=== PATIENT | female | born 1970 | race Caucasian/White ===

== ENCOUNTER → 2017-04-04 11:44 | Outpatient (CLI) | payer OTHER, SELFPAY ==
[2017-04-04 14:06] LABS: Color, Urine Yellow (Yellow); Glucose, Dipstick Normal (Normal); Ketone-Dipstick 5 mg/dl (Negative); Leukocyte Esterase-Dipstick Negative /ul (Negative); Nitrite-Dipstick Negative (Negative); Occult Blood-Urine Negative /ul (Negative); Protein-Dipstick Negative (Negative); Urine Bilirubin Dipstick Negative (Negative); Urine Clarity Sl. Cloudy (Clear); Urine Urobilinogen Normal (Normal)
[2017-04-04 14:13] LABS: Absolute Lymphocyte Count 1.59 X10^3/ul (0.83-4.51); Absolute Neutrophil Count 2.5 X10^3/uL (2.0-7.7); Basophil# 0.03 X10^3/uL; Basophil% 0.6 % (0-1); Eosinophil# 0.07 X10^3/uL; Eosinophils% 1.5 % (0-5); Hematocrit 38.4 % (37-47); Hemoglobin 12.6 g/dl (12.0-15.0); Lymphocyte # 1.59 X10^3/ul (4.0); Lymphocyte % 34.3 % (19-41); Mean Corp Hgb Conc 32.8 g/gl (32-36); Mean Corpuscular Hgb 29.7 pg (27.0-32.0); Mean Corpuscular Volume 90.6 fL (81-99); Mean Platelet Vol. 10.3 fl (6.2-12.0); Monocyte# 0.47 X10^3/uL; Monocyte% 10.1 % (0-10); Neutrophil # 2.48 X10^3/uL (2.7-7.7); Neutrophil % 53.5 % (47-70); Platelet Count 200 K/mm3 (150-450); Protein, Urine (Random) 19.8 mg/dL (<11.9); Protein:Creat Ratio 139 mg/g CRE (0-200); RBC Distribution Width CV 13.1 % (11.6-14.6); RBC Distribution Width SD 42.9 fl (35.1-43.9); Red Blood Count 4.24 M/mm3 (4.2-5.4); White Blood Count 4.6 K/mm3 (4.4-11.0)
[2017-04-04 14:18] LABS: POSITIVE COUNT NO; POSITIVE DIFFERENTIAL NO; POSITIVE MORPHOLOGY NO
[2017-04-04 14:37] LABS: ALB/GLOB Ratio 1.3 RATIO (0.9-2.4); AST(SGOT) 18 U/L (15-37); Alanine Aminotransfer ALT/SGPT 27 U/L (13-56); Albumin, Serum 4.1 g/dL (3.2-5.0); Alkaline Phosphatase 55 U/L (45-117); Anion Gap 8 (5-15); BUN 14 mg/dL (7-18); BUN/Creat Ratio 21.4 RATIO (10-20); Calcium,Total 8.9 mg/dL (8.5-10.1); Chloride 106 mmol/L (98-107); Creatinine, Serum 0.66 mg/dL (0.55-1.02); EST Glomerular Filtration Rate 103 mL/min (>60); Est Glom Filt Rate - Afr Amer 125 mL/min (>60); Globulin 3.1 g/dL (2.2-4.2); Glucose 82 mg/dL (74-106); Potassium 3.8 mmol/L (3.5-5.1); Protein, Total 7.2 g/dL (6.4-8.2); Sodium Level 140 mmol/L (136-145)
[2017-04-06 11:12] LABS: Anti-dsDNA Ab 6 IU/mL (0-9)
[2017-04-06 11:21] LABS: Complement C3 114 mg/dL (82-167)
== END ==
PROVIDERS: Visit Provider Internal Medicine Rheumatology
DX: M35.8 Other specified systemic involvement of connective tissue (principal); Z79.899 Other long term (current) drug therapy; M65.311 Trigger thumb, right thumb; F32.9 Major depressive disorder, single episode, unspecified; F41.9 Anxiety disorder, unspecified
CPT/HCPCS: 36415; 80053; 81002; 82570; 84156; 85025; 86160; 86225

== ENCOUNTER → 2017-06-21 11:34 | Outpatient (CLI) | payer OTHER, SELFPAY ==
[2017-06-21 14:28] LABS: Absolute Lymphocyte Count 1.94 X10^3/ul (0.83-4.51); Absolute Neutrophil Count 2.6 X10^3/uL (2.0-7.7); Basophil# 0.04 X10^3/uL; Basophil% 0.8 % (0-1); Eosinophil# 0.11 X10^3/uL; Eosinophils% 2.2 % (0-5); Hematocrit 35.9 % (37-47); Hemoglobin 12.2 g/dl (12.0-15.0); Lymphocyte # 1.94 X10^3/ul (4.0); Mean Corpuscular Hgb 30.3 pg (27.0-32.0); Mean Corpuscular Volume 89.3 fL (81-99); Mean Platelet Vol. 10.3 fl (6.2-12.0); Monocyte# 0.39 X10^3/uL; Monocyte% 7.6 % (0-10); Neutrophil # 2.62 X10^3/uL (2.7-7.7); Neutrophil % 51.2 % (47-70); Platelet Count 225 K/mm3 (150-450); RBC Distribution Width SD 41.9 fl (35.1-43.9); Red Blood Count 4.02 M/mm3 (4.2-5.4); White Blood Count 5.1 K/mm3 (4.4-11.0)
[2017-06-21 14:38] LABS: POSITIVE COUNT NO; POSITIVE DIFFERENTIAL NO; POSITIVE MORPHOLOGY NO
[2017-06-21 14:47] LABS: ALB/GLOB Ratio 1.4 RATIO (0.9-2.4); AST(SGOT) 29 U/L (15-37); Alanine Aminotransfer ALT/SGPT 35 U/L (13-56); Albumin, Serum 4.1 g/dL (3.2-5.0); Alkaline Phosphatase 51 U/L (45-117); Anion Gap 7 (5-15); BUN 14 mg/dL (7-18); BUN/Creat Ratio 19.3 RATIO (10-20); Calcium,Total 8.8 mg/dL (8.5-10.1); Chloride 108 mmol/L (98-107); Creatinine, Serum 0.72 mg/dL (0.55-1.02); EST Glomerular Filtration Rate 92 mL/min (>60); Est Glom Filt Rate - Afr Amer 111 mL/min (>60); Globulin 2.9 g/dL (2.2-4.2); Glucose 76 mg/dL (74-106); Sodium Level 141 mmol/L (136-145)
== END ==
PROVIDERS: Visit Provider Internal Medicine Rheumatology
DX: M06.4 Inflammatory polyarthropathy (principal); M35.8 Other specified systemic involvement of connective tissue; Z79.899 Other long term (current) drug therapy; M65.311 Trigger thumb, right thumb; F32.9 Major depressive disorder, single episode, unspecified; F41.9 Anxiety disorder, unspecified
CPT/HCPCS: 36415; 80053; 85025

== ENCOUNTER 2017-11-06 20:46 | Emergency (ER) | payer OTHER, SELFPAY ==
[2017-11-06 20:48] VITALS: BP 117/68; PULSE 91; RESP 18; TEMP 37.3; O2SAT 98; BMI 28.8
[2017-11-06 21:50] LABS: Absolute Lymphocyte Count 1.55 X10^3/ul (0.83-4.51); Absolute Neutrophil Count 2.9 X10^3/uL (2.0-7.7); Basophil# 0.04 X10^3/uL; Basophil% 0.8 % (0-1); Hematocrit 32.4 % (37-47); Hemoglobin 10.3 g/dl (12.0-15.0); Lymphocyte # 1.55 X10^3/ul (4.0); Lymphocyte % 31.6 % (19-41); Mean Corp Hgb Conc 31.8 g/gl (32-36); Mean Corpuscular Hgb 25.8 pg (27.0-32.0); Mean Corpuscular Volume 81.2 fL (81-99); Mean Platelet Vol. 9.1 fl (6.2-12.0); Monocyte# 0.29 X10^3/uL; Monocyte% 5.9 % (0-10); Neutrophil # 2.92 X10^3/uL (2.7-7.7); Neutrophil % 59.7 % (47-70); Platelet Count 251 K/mm3 (150-450); RBC Distribution Width CV 14.2 % (11.6-14.6); RBC Distribution Width SD 42.1 fl (35.1-43.9); Red Blood Count 3.99 M/mm3 (4.2-5.4); White Blood Count 4.9 K/mm3 (4.4-11.0)
[2017-11-06 21:52] LABS: POSITIVE COUNT NO; POSITIVE DIFFERENTIAL NO; POSITIVE MORPHOLOGY NO
[2017-11-06 22:11] LABS: Anion Gap 9 (5-15); BUN 12 mg/dL (7-18); Calcium,Total 8.5 mg/dL (8.5-10.1); Chloride 106 mmol/L (98-107); Creatinine, Serum 0.57 mg/dL (0.55-1.02); EST Glomerular Filtration Rate 121 mL/min (>60); Est Glom Filt Rate - Afr Amer 146 mL/min (>60); Estimated Creatinine Clearance 105.36 ml/min; Glucose 92 mg/dL (74-106); Potassium 3.4 mmol/L (3.5-5.1); Sodium Level 138 mmol/L (136-145); Thyroid Stim Hormone (TSH) 1.76 uIU/mL (0.358-3.74)
[2017-11-06 22:17] LABS: Pregnancy, Serum, hCG Quali. NEGATIVE Negative (0-9 Nonpreg)
--- NOTE | 2017-11-06 22:40 | CT_ITS ---
STUDY: CTA CHEST REASON FOR EXAM: Female, 47 years old. Supraclavicular swelling. RADIATION DOSAGE (If Supplied By Facility): CTDIvol = ( 8.36 ) mGy, DLP = ( 409.78 ) mGycm TECHNIQUE: The examination was performed with the intravenous administration of 100 ml of Isovue 370 contrast material. Post-processing of the angiographic images was performed, with multiplanar reformation and 3D reconstruction. Individualized dose optimization techniques were used for this CT. COMPARISON: None. FINDINGS: Normal enhancement of the main pulmonary artery and right and left pulmonary arteries. Normal enhancement of the bilateral peripheral pulmonary arteries. There is no demonstrated pulmonary embolism. Normal thoracic aorta and visualized great vessels. There is no demonstrated aortic dissection. Normal heart and pericardium. Normal mediastinum. Normal hilar regions. Normal visualized trachea and bronchi. There is minimal bibasilar atelectasis. There are bilateral breast implants in place. Normal osseous structures. Normal visualized upper abdomen. CT/CTA Chest W/WO Contrast IMPRESSION: No demonstrated pulmonary embolism or arterial dissection. Minimal bibasilar atelectasis. Electronically Signed: Penny Verde MD at 23:09 EDT Tel , Service support ,
--- NOTE | 2017-11-06 23:22 | ED.DCSUM_ITS ---
- ER Visit Summary Date of Service: 11/06/17 Chief Complaint: Swelling History of Present Illness: The patient is a 47 F with a history of meningioma, status post craniotomy and resection in August of this year. Also reports a history of mixed connective tissue disease. Presents today with swelling in her bilateral supraclavicular areas. This came on this evening and has been continuous. She never had this before. No pain or other associated symptoms. She was playing basketball earlier today. Denies any injuries. No steroid use currently. No history of thyroid disease. Physical Examination: Afebrile and vital signs unremarkable. Head and neck atraumatic. Neck is nontender with good range of motion. She has bilateral supraclavicular fullness without tenderness or masses. Heart regular. Lungs clear. Moves all extremities. Cranial nerves grossly intact. Overlying skin appears normal. Test Results: Hemoglobin 10.3 and potassium 3.4. test negative. TSH normal. CT of her chest showed no evidence of PE or dissection. She has mild bibasilar atelectasis. No masses. Emergency Department Course and Treatment: Patient's workup was unremarkable. I am not sure what is causing the swelling. This does not appear to be an emergent process. This may resolve over time. Patient was advised to follow- up with her family doctor for recheck. Return for any new or worsening issues. Treatment Plan: As above Disposition: Discharged Impression: 1. Bilateral supraclavicular edema 2. Anemia This note was generated with [employer] dictation software. It may contain incorrect words, spelling, and punctuation that were not noted in review of the chart prior to signing ED Disposition - Plan for ED Patient: Chief Complaint: Edema Referrals: Care Physician,No Primary [Primary Care Provider] -
--- NOTE | 2017-11-06 23:23 | ED.DEP ---
ED Disposition - Plan for ED Patient: Chief Complaint: Edema Instructions: Anemia Referrals: Kenji,Do, [NON-STAFF] -
[2017-11-06 23:37] VITALS: BP 122/78; PULSE 78; RESP 16
== END 2017-11-06 23:38 | disposition home or self-care (01) ==
LOC: ED 21:49
PROVIDERS: Emergency Provider Emergency Medicine
DX: R60.9 Edema, unspecified (principal); D64.9 Anemia, unspecified; M35.1 Other overlap syndromes; J98.11 Atelectasis; Z87.891 Personal history of nicotine dependence
CPT/HCPCS: 71275; 80048; 84443; 84703; 85025; 99283; Q9967; A4216

== ENCOUNTER → 2018-04-13 11:58 | Outpatient (CLI) | payer OTHER, SELFPAY ==
[2018-04-13 13:53] LABS: Absolute Lymphocyte Count 2.01 X10^3/ul (0.83-4.51); Absolute Neutrophil Count 3.2 X10^3/uL (2.0-7.7); Basophil# 0.04 X10^3/uL; Basophil% 0.7 % (0-1); Eosinophil# 0.07 X10^3/uL; Eosinophils% 1.2 % (0-5); Hematocrit 38.5 % (37-47); Hemoglobin 12.4 g/dl (12.0-15.0); Lymphocyte # 2.01 X10^3/ul (4.0); Lymphocyte % 34.9 % (19-41); Mean Corp Hgb Conc 32.2 g/gl (32-36); Mean Corpuscular Hgb 27.4 pg (27.0-32.0); Monocyte# 0.49 X10^3/uL; Monocyte% 8.5 % (0-10); Neutrophil # 3.15 X10^3/uL (2.7-7.7); Neutrophil % 54.7 % (47-70); Platelet Count 254 K/mm3 (150-450); RBC Distribution Width CV 15.5 % (11.6-14.6); RBC Distribution Width SD 47.9 fl (35.1-43.9); Red Blood Count 4.53 M/mm3 (4.2-5.4); White Blood Count 5.8 K/mm3 (4.4-11.0)
[2018-04-13 13:54] LABS: POSITIVE COUNT NO; POSITIVE DIFFERENTIAL NO; POSITIVE MORPHOLOGY NO
[2018-04-13 14:07] LABS: ALB/GLOB Ratio 1.2 RATIO (0.9-2.4); AST(SGOT) 16 U/L (15-37); Alanine Aminotransfer ALT/SGPT 23 U/L (13-56); Albumin, Serum 4.1 g/dL (3.2-5.0); Alkaline Phosphatase 68 U/L (45-117); Anion Gap 6 (5-15); BUN 15 mg/dL (7-18); BUN/Creat Ratio 23.6 RATIO (10-20); Calcium,Total 8.9 mg/dL (8.5-10.1); Chloride 109 mmol/L (98-107); Creatinine, Serum 0.64 mg/dL (0.55-1.02); EST Glomerular Filtration Rate 106 mL/min (>60); Est Glom Filt Rate - Afr Amer 129 mL/min (>60); Globulin 3.3 g/dL (2.2-4.2); Glucose 88 mg/dL (74-106); Potassium 3.8 mmol/L (3.5-5.1); Protein, Total 7.4 g/dL (6.4-8.2); Sodium Level 138 mmol/L (136-145)
== END ==
PROVIDERS: Family Provider Family Medicine; PCP Family Medicine; Referring Provider Internal Medicine Rheumatology; Visit Provider Internal Medicine Rheumatology
DX: M06.4 Inflammatory polyarthropathy (principal); M35.8 Other specified systemic involvement of connective tissue; Z79.899 Other long term (current) drug therapy; M65.311 Trigger thumb, right thumb; F32.9 Major depressive disorder, single episode, unspecified; F41.9 Anxiety disorder, unspecified
CPT/HCPCS: 36415; 80053; 85025

== ENCOUNTER → 2019-08-15 14:37 | Outpatient (CLI) | payer OTHER, SELFPAY ==
[2019-08-21 09:38] LABS: HPV Reflexed? NOT INDICATED
== END ==
PROVIDERS: PCP Family Medicine; Visit Provider Obstetrics & Gynecology
DX: Z12.4 Encounter for screening for malignant neoplasm of cervix (principal)
CPT/HCPCS: 88175; G0145

== ENCOUNTER 2021-03-30 11:27 | Outpatient (CLI) | payer OTHER, SELFPAY ==
[2021-03-30 15:55] LABS: ALB/GLOB Ratio 1.2 RATIO (0.9-2.4); AST(SGOT) 36 U/L (15-37); Alanine Aminotransfer ALT/SGPT 65 U/L (13-56); Albumin, Serum 3.8 g/dL (3.2-5.0); Alkaline Phosphatase 110 U/L (45-117); Anion Gap 6 (5-15); BUN 15 mg/dL (7-18); Calcium,Total 8.9 mg/dL (8.5-10.1); Chloride 106 mmol/L (98-107); Creatinine, Serum 0.65 mg/dL (0.55-1.02); EST Glomerular Filtration Rate 102 mL/min (>60); Est Glom Filt Rate - Afr Amer 123 mL/min (>60); Globulin 3.3 g/dL (2.2-4.2); Glucose 87 mg/dL (74-106); Potassium 3.9 mmol/L (3.5-5.1); Protein, Total 7.1 g/dL (6.4-8.2); Sodium Level 138 mmol/L (136-145)
[2021-03-30 17:42] LABS: Absolute Lymphocyte Count 1.94 X10^3/uL (0.83-4.51); Absolute Neutrophil Count 3.3 X10^3/uL (2.0-7.7); Basophil# 0.07 X10^3/uL; Basophil% 1.2 % (0-1); Eosinophil# 0.06 X10^3/uL; Hematocrit 37.3 % (37-47); Hemoglobin 12.4 g/dL (12.0-15.0); Lymphocyte # 1.94 X10^3/ul (0.83-4.51); Lymphocyte % 33.6 % (19-41); Mean Corp Hgb Conc 33.2 g/dL (32-36); Mean Corpuscular Hgb 29.9 pg (27.0-32.0); Mean Corpuscular Volume 89.9 fL (81-99); Mean Platelet Vol. 10.4 fl (6.2-12.0); Monocyte# 0.43 X10^3/uL; Monocyte% 7.5 % (0-10); NRBC Flagged by Analyzer 0 % (0-5); Neutrophil # 3.26 X10^3/uL (2.7-7.7); Neutrophil % 56.5 % (47-70); Platelet Count 243 K/mm3 (150-450); RBC Distribution Width CV 13.1 % (11.6-14.6); RBC Distribution Width SD 43.2 fl (35.1-43.9); Red Blood Count 4.15 M/mm3 (4.2-5.4); White Blood Count 5.8 K/mm3 (4.4-11.0)
== END 2021-03-30 23:59 | disposition home or self-care (01) ==
LOC: MTLAB 11:30
PROVIDERS: PCP Family Medicine; Referring Provider Internal Medicine Rheumatology; Visit Provider Internal Medicine Rheumatology
DX: M06.4 Inflammatory polyarthropathy (principal); M35.89 Other specified systemic involvement of connective tissue; Z79.899 Other long term (current) drug therapy; M65.311 Trigger thumb, right thumb; F32.89 Other specified depressive episodes; F41.9 Anxiety disorder, unspecified
CPT/HCPCS: 36415; 80053; 85025

== ENCOUNTER → 2021-12-13 | Outpatient (CLI) | payer OTHER, SELFPAY ==
[2021-12-13 15:24] LABS: Absolute Lymphocyte Count 2.28 X10^3/uL (0.83-4.51); Absolute Neutrophil Count 4.6 X10^3/uL (2.0-7.7); Basophil# 0.06 X10^3/uL; Basophil% 0.8 % (0-1); Eosinophil# 0.09 X10^3/uL; Eosinophils% 1.2 % (0-5); Hematocrit 39.2 % (37-47); Hemoglobin 12.9 g/dL (12.0-15.0); Lymphocyte # 2.28 X10^3/ul (0.83-4.51); Lymphocyte % 30.2 % (19-41); Mean Corp Hgb Conc 32.9 g/dL (32-36); Mean Corpuscular Hgb 29.8 pg (27.0-32.0); Mean Corpuscular Volume 90.5 fL (81-99); Mean Platelet Vol. 10.4 fl (6.2-12.0); Monocyte# 0.53 X10^3/uL; NRBC Flagged by Analyzer 0 % (0-5); Neutrophil # 4.56 X10^3/uL (2.7-7.7); Neutrophil % 60.5 % (47-70); Platelet Count 253 K/mm3 (150-450); RBC Distribution Width CV 13.2 % (11.6-14.6); RBC Distribution Width SD 43.8 fl (35.1-43.9); Red Blood Count 4.33 M/mm3 (4.2-5.4); White Blood Count 7.5 K/mm3 (4.4-11.0)
[2021-12-13 15:45] LABS: ALB/GLOB Ratio 1.2 RATIO (0.9-2.4); AST(SGOT) 25 U/L (15-37); Alanine Aminotransfer ALT/SGPT 46 U/L (13-56); Albumin, Serum 3.8 g/dL (3.2-5.0); Alkaline Phosphatase 87 U/L (45-117); Anion Gap 6 (5-15); BUN 12 mg/dL (7-18); BUN/Creat Ratio 16.1 RATIO (10-20); Calcium,Total 9.1 mg/dL (8.5-10.1); Chloride 106 mmol/L (98-107); Creatinine, Serum 0.75 mg/dL (0.55-1.02); EST Glomerular Filtration Rate 87 mL/min (>60); Est Glom Filt Rate - Afr Amer 105 mL/min (>60); Globulin 3.3 g/dL (2.2-4.2); Glucose 85 mg/dL (74-106); Potassium 3.8 mmol/L (3.5-5.1); Protein, Total 7.1 g/dL (6.4-8.2); Sodium Level 139 mmol/L (136-145)
== END | disposition home or self-care (01) ==
PROVIDERS: PCP Family Medicine; Referring Provider Internal Medicine Rheumatology; Visit Provider Internal Medicine Rheumatology
DX: M06.4 Inflammatory polyarthropathy (principal); M35.81 Multisystem inflammatory syndrome; Z79.899 Other long term (current) drug therapy; M65.311 Trigger thumb, right thumb; F32.89 Other specified depressive episodes; F41.9 Anxiety disorder, unspecified
CPT/HCPCS: 36415; 80053; 85025

== ENCOUNTER → 2022-06-13 | Outpatient (CLI) | payer OTHER, SELFPAY ==
[2022-06-13 15:13] LABS: Absolute Lymphocyte Count 1.78 X10^3/uL (0.83-4.51); Absolute Neutrophil Count 2.9 X10^3/uL (2.0-7.7); Basophil# 0.07 X10^3/uL; Basophil% 1.3 % (0-1); Eosinophil# 0.07 X10^3/uL; Eosinophils% 1.3 % (0-5); Hematocrit 41.2 % (37-47); Hemoglobin 13.5 g/dL (12.0-15.0); Lymphocyte # 1.78 X10^3/ul (0.83-4.51); Lymphocyte % 34.1 % (19-41); Mean Corp Hgb Conc 32.8 g/dL (32-36); Mean Corpuscular Hgb 30.2 pg (27.0-32.0); Mean Corpuscular Volume 92.2 fL (81-99); Mean Platelet Vol. 10.6 fl (6.2-12.0); Monocyte# 0.37 X10^3/uL; Monocyte% 7.1 % (0-10); NRBC Flagged by Analyzer 0 % (0-5); Neutrophil # 2.92 X10^3/uL (2.7-7.7); Platelet Count 233 K/mm3 (150-450); RBC Distribution Width SD 44.2 fl (35.1-43.9); Red Blood Count 4.47 M/mm3 (4.2-5.4); White Blood Count 5.2 K/mm3 (4.4-11.0)
[2022-06-13 15:33] LABS: ALB/GLOB Ratio 1.2 RATIO (0.9-2.4); AST(SGOT) 29 U/L (15-37); Alanine Aminotransfer ALT/SGPT 49 U/L (13-56); Alkaline Phosphatase 79 U/L (45-117); Anion Gap 4 (5-15); BUN 13 mg/dL (7-18); BUN/Creat Ratio 19.5 RATIO (10-20); Calcium,Total 9.3 mg/dL (8.5-10.1); Chloride 107 mmol/L (98-107); Creatinine, Serum 0.67 mg/dL (0.55-1.02); EST Glomerular Filtration Rate 99 mL/min (>60); Est Glom Filt Rate - Afr Amer 120 mL/min (>60); Globulin 3.2 g/dL (2.2-4.2); Glucose 86 mg/dL (74-106); Potassium 3.7 mmol/L (3.5-5.1); Protein, Total 7.2 g/dL (6.4-8.2); Sodium Level 137 mmol/L (136-145)
== END | disposition home or self-care (01) ==
LOC: MTLAB 11:38
PROVIDERS: PCP Family Medicine; Referring Provider Internal Medicine Rheumatology; Visit Provider Internal Medicine Rheumatology
DX: M06.4 Inflammatory polyarthropathy (principal); M35.89 Other specified systemic involvement of connective tissue; Z79.899 Other long term (current) drug therapy; M65.311 Trigger thumb, right thumb; F32.89 Other specified depressive episodes; F41.9 Anxiety disorder, unspecified
CPT/HCPCS: 36415; 80053; 85025

== ENCOUNTER → 2022-12-09 | Outpatient (CLI) | payer OTHER, SELFPAY ==
[2022-12-09 15:07] LABS: Absolute Lymphocyte Count 2.01 X10^3/uL (0.83-4.51); Basophil# 0.07 X10^3/uL; Basophil% 1.3 % (0-1); Eosinophil# 0.09 X10^3/uL; Eosinophils% 1.6 % (0-5); Hematocrit 41.9 % (37-47); Hemoglobin 13.9 g/dL (12.0-15.0); Lymphocyte # 2.01 X10^3/ul (0.83-4.51); Lymphocyte % 36.3 % (19-41); Mean Corp Hgb Conc 33.2 g/dL (32-36); Mean Corpuscular Hgb 30.8 pg (27.0-32.0); Mean Corpuscular Volume 92.9 fL (81-99); Mean Platelet Vol. 10.4 fl (6.2-12.0); Monocyte% 7.2 % (0-10); NRBC Flagged by Analyzer 0 % (0-5); Neutrophil # 2.97 X10^3/uL (2.7-7.7); Neutrophil % 53.6 % (47-70); Platelet Count 232 K/mm3 (150-450); RBC Distribution Width CV 12.7 % (11.6-14.6); RBC Distribution Width SD 43.2 fl (35.1-43.9); Red Blood Count 4.51 M/mm3 (4.2-5.4); White Blood Count 5.5 K/mm3 (4.4-11.0)
[2022-12-09 16:39] LABS: ALB/GLOB Ratio 1.1 RATIO (0.9-2.4); AST(SGOT) 29 U/L (15-37); Alanine Aminotransfer ALT/SGPT 94 U/L (13-56); Alkaline Phosphatase 81 U/L (45-117); Anion Gap 7 (5-15); BUN 17 mg/dL (7-18); BUN/Creat Ratio 24.2 RATIO (10-20); Calcium,Total 9.2 mg/dL (8.5-10.1); Chloride 108 mmol/L (98-107); EST Glomerular Filtration Rate 93 mL/min (>60); Est Glom Filt Rate - Afr Amer 112 mL/min (>60); Globulin 3.5 g/dL (2.2-4.2); Glucose 98 mg/dL (74-106); Potassium 4.2 mmol/L (3.5-5.1); Protein, Total 7.5 g/dL (6.4-8.2); Sodium Level 142 mmol/L (136-145)
== END | disposition home or self-care (01) ==
LOC: MTLAB 11:37
PROVIDERS: PCP Family Medicine; Referring Provider Internal Medicine Rheumatology; Visit Provider Internal Medicine Rheumatology
DX: M06.4 Inflammatory polyarthropathy (principal); M35.89 Other specified systemic involvement of connective tissue; Z79.899 Other long term (current) drug therapy
CPT/HCPCS: 36415; 80053; 85025

== ENCOUNTER → 2023-06-05 | Outpatient (CLI) | payer OTHER, SELFPAY ==
[2023-06-05 15:47] LABS: Absolute Lymphocyte Count 1.49 X10^3/uL (0.83-4.51); Absolute Neutrophil Count 5.2 X10^3/uL (2.0-7.7); Basophil# 0.08 X10^3/uL; Basophil% 1.1 % (0-1); Eosinophil# 0.07 X10^3/uL; Hematocrit 40.3 % (37-47); Hemoglobin 13.6 g/dL (12.0-15.0); Lymphocyte # 1.49 X10^3/ul (0.83-4.51); Lymphocyte % 20.9 % (19-41); Mean Corp Hgb Conc 33.7 g/dL (32-36); Mean Corpuscular Hgb 30.2 pg (27.0-32.0); Mean Corpuscular Volume 89.6 fL (81-99); Mean Platelet Vol. 9.7 fl (6.2-12.0); Monocyte% 4.2 % (0-10); NRBC Flagged by Analyzer 0 % (0-5); Neutrophil # 5.17 X10^3/uL (2.7-7.7); Neutrophil % 72.7 % (47-70); Platelet Count 243 K/mm3 (150-450); RBC Distribution Width CV 12.2 % (11.6-14.6); RBC Distribution Width SD 39.8 fl (35.1-43.9); White Blood Count 7.1 K/mm3 (4.4-11.0)
[2023-06-05 16:13] LABS: ALB/GLOB Ratio 1.3 RATIO (0.9-2.4); AST(SGOT) 21 U/L (15-37); Alanine Aminotransfer ALT/SGPT 32 U/L (13-56); Albumin, Serum 4.1 g/dL (3.2-5.0); Alkaline Phosphatase 80 U/L (45-117); Anion Gap 4 (5-15); BUN 13 mg/dL (7-18); BUN/Creat Ratio 17.3 RATIO (10-20); Calcium,Total 9.2 mg/dL (8.5-10.1); Chloride 108 mmol/L (98-107); Creatinine, Serum 0.75 mg/dL (0.55-1.02); EST Glomerular Filtration Rate 86 mL/min (>60); Est Glom Filt Rate - Afr Amer 104 mL/min (>60); Globulin 3.2 g/dL (2.2-4.2); Glucose 104 mg/dL (74-106); Potassium 3.9 mmol/L (3.5-5.1); Protein, Total 7.3 g/dL (6.4-8.2); Sodium Level 141 mmol/L (136-145)
== END | disposition home or self-care (01) ==
LOC: MTLAB 11:43
PROVIDERS: PCP Family Medicine; Referring Provider Internal Medicine Rheumatology; Visit Provider Internal Medicine Rheumatology
DX: M06.4 Inflammatory polyarthropathy (principal); M35.89 Other specified systemic involvement of connective tissue; Z79.899 Other long term (current) drug therapy; M65.311 Trigger thumb, right thumb
CPT/HCPCS: 36415; 80053; 85025

== ENCOUNTER → 2023-12-04 | Outpatient (CLI) | payer OTHER, SELFPAY ==
[2023-12-04 15:30] LABS: Absolute Lymphocyte Count 1.82 X10^3/uL (0.83-4.51); Absolute Neutrophil Count 3.3 X10^3/uL (2.0-7.7); Basophil# 0.07 X10^3/uL; Basophil% 1.2 % (0-1); Eosinophil# 0.06 X10^3/uL; Eosinophils% 1.1 % (0-5); Hematocrit 40.5 % (37-47); Hemoglobin 13.5 g/dL (12.0-15.0); Lymphocyte # 1.82 X10^3/ul (0.83-4.51); Lymphocyte % 32.3 % (19-41); Mean Corp Hgb Conc 33.3 g/dL (32-36); Mean Corpuscular Hgb 29.6 pg (27.0-32.0); Mean Corpuscular Volume 88.8 fL (81-99); Mean Platelet Vol. 10.2 fl (6.2-12.0); Monocyte# 0.39 X10^3/uL; Monocyte% 6.9 % (0-10); NRBC Flagged by Analyzer 0 % (0-5); Neutrophil # 3.27 X10^3/uL (2.7-7.7); Neutrophil % 58.1 % (47-70); Platelet Count 246 K/mm3 (150-450); RBC Distribution Width CV 12.6 % (11.6-14.6); RBC Distribution Width SD 41.1 fl (35.1-43.9); Red Blood Count 4.56 M/mm3 (4.2-5.4); White Blood Count 5.6 K/mm3 (4.4-11.0)
[2023-12-04 15:56] LABS: ALB/GLOB Ratio 1.2 RATIO (0.9-2.4); AST(SGOT) 22 U/L (15-37); Alanine Aminotransfer ALT/SGPT 38 U/L (13-56); Albumin, Serum 4.2 g/dL (3.2-5.0); Alkaline Phosphatase 79 U/L (45-117); Anion Gap 5 (5-15); BUN 13 mg/dL (7-18); BUN/Creat Ratio 18.3 RATIO (10-20); Calcium,Total 9.8 mg/dL (8.5-10.1); Chloride 108 mmol/L (98-107); Creatinine, Serum 0.71 mg/dL (0.55-1.02); EST Glomerular Filtration Rate 92 mL/min (>60); Est Glom Filt Rate - Afr Amer 111 mL/min (>60); Globulin 3.4 g/dL (2.2-4.2); Glucose 97 mg/dL (74-106); Potassium 3.6 mmol/L (3.5-5.1); Protein, Total 7.6 g/dL (6.4-8.2); Sodium Level 139 mmol/L (136-145)
== END | disposition home or self-care (01) ==
PROVIDERS: PCP Family Medicine; Referring Provider Internal Medicine Rheumatology; Visit Provider Internal Medicine Rheumatology
DX: M06.4 Inflammatory polyarthropathy (principal); M35.89 Other specified systemic involvement of connective tissue; Z79.899 Other long term (current) drug therapy; M65.311 Trigger thumb, right thumb
CPT/HCPCS: 36415; 80053; 85025

== ENCOUNTER → 2024-05-27 | Outpatient (CLI) | payer OTHER, SELFPAY ==
[2024-05-27 15:50] LABS: Absolute Lymphocyte Count 1.55 X10^3/uL (0.83-4.51); Absolute Neutrophil Count 3.1 X10^3/uL (2.0-7.7); Basophil# 0.05 X10^3/uL; Eosinophil# 0.07 X10^3/uL; Eosinophils% 1.4 % (0-5); Hematocrit 39.8 % (37-47); Hemoglobin 13.2 g/dL (12.0-15.0); Lymphocyte # 1.55 X10^3/ul (0.83-4.51); Lymphocyte % 30.4 % (19-41); Mean Corp Hgb Conc 33.2 g/dL (32-36); Mean Corpuscular Hgb 29.9 pg (27.0-32.0); Mean Corpuscular Volume 90.2 fL (81-99); Mean Platelet Vol. 10.5 fl (6.2-12.0); Monocyte# 0.31 X10^3/uL; Monocyte% 6.1 % (0-10); NRBC Flagged by Analyzer 0 % (0-5); Neutrophil # 3.11 X10^3/uL (2.7-7.7); Neutrophil % 60.9 % (47-70); Platelet Count 230 K/mm3 (150-450); RBC Distribution Width CV 12.6 % (11.6-14.6); RBC Distribution Width SD 41.5 fl (35.1-43.9); Red Blood Count 4.41 M/mm3 (4.2-5.4); White Blood Count 5.1 K/mm3 (4.4-11.0)
[2024-05-27 17:49] LABS: ALB/GLOB Ratio 1.7 RATIO (0.9-2.4); AST(SGOT) 33 U/L (<=31); Alanine Aminotransfer ALT/SGPT 41 U/L (<=34); Albumin, Serum 4.5 g/dL (3.5-5.0); Alkaline Phosphatase 93 U/L (35-104); Anion Gap 12 (5-15); BUN 13 mg/dL (4-19); BUN/Creat Ratio 19.1 RATIO (10-20); Calcium,Total 9.5 mg/dL (7.6-11.0); Carbon Dioxide 23.2 mmol/L (21.0-32.0); Chloride 105 mmol/L (98-108); Creatinine, Serum 0.68 mg/dL (0.70-1.20); EST Glomerular Filtration Rate 104 (>60); Globulin 2.7 g/dL (2.2-4.2); Glucose 85 mg/dL (70-99); Potassium 4.4 mmol/L (3.3-5.1); Protein, Total 7.2 g/dL (5.9-8.4); Sodium Level 140 mmol/L (133-145); Total Bilirubin 0.24 mg/dL (0.00-1.30)
== END | disposition home or self-care (01) ==
PROVIDERS: PCP Family Medicine; Referring Provider Internal Medicine Rheumatology; Visit Provider Internal Medicine Rheumatology
DX: M06.4 Inflammatory polyarthropathy (principal); M35.89 Other specified systemic involvement of connective tissue
CPT/HCPCS: 36415; 80053; 85025

== ENCOUNTER → 2024-11-18 | Outpatient (CLI) | payer OTHER, SELFPAY ==
--- OUTSIDE RECORDS SUMMARY | 2024-05-06 15:53 | XMS RPT_ITS ---
Author Name Auto Generated Organization OHIP Care Team Providers Care Possum Trapper Name Role Phone TARA NATARAJAN Attending Unavailable ZAINA LAZAR Primary Care Unavailable TARA NATARAJAN Referring Unavailable JOHANNA, OLGA Primary Care Unavailable DADA ALCOCER Admitting Unava ilJUAN MIGUEL Sun Referring Unavailable JOHANNA, CHALON Primary Care Unavailable DADA ALCOCER Attending Unava ilable TARA NATARAJAN Attending Unavailable JOHANNA, CHALON Primary Care Unavailable JUAN MIGUEL JOHNSON Attending Unavailable JOHANNA, CHALON Primary Care Unavailable PROBLEMS DATE TYPE CONDITION / CODE ATTENDING STATUS [facility] 03/30/2024 Active Seizure (HCC) / R56.9(ICD-10) NA Active [facility] 03/30/2024 Active Status epileptic us (HCC) / G40.901(ICD-10) JUAN MIGUEL JOHNSON Active [facility] PROCEDURES No Procedure Records Found RESULTS LEVETIRACETAM SERPL-MCNC Collected: 05/06/2024 3:59 P M Status: F Source: [facility] Order Comment: Specimen Type : BLOOD SPECIMEN Ordering Facility: [facility] Address: [address] [place] [address] TYPE CODE TESTS RESULT OUT OF RANGE REFERENCE UNITS LAB 78425-0(LOINC) levETIRAcetam SerPl-mCnc 20.2 12.0-46.0 ug/mL Result Comment: This test is not suitable for patients receiving treatment with the drug brivaracetam (Briviact). The drug causes an interference that may lead to falsely elevated levetiracetam results. Reference ranges and high/low indicator flags are provided as general guidelines only. The treating physician must determine appropriate target levels/dosing based on the specific clinical situation. This test was developed, and its performance characteristics determined by the [facility] Department of Pathology and Laboratory Medicine. It has not been cleared or approved by the FDA. The [facility] Department of Pathology and Laboratory Medicine is regulated under CLIA as qualified to perform high- complexity testing. This test is used for clinical purposes. It should not be regarded as investigational or for research. Performed By: #### 33030-4 # ### [facility] CLIA [id number] [address] [place] [address] [place] PROGRESS Observed: 05/01/2024 9:45 AM Status: COMPLETED Source: [facility] HNO ID: [id number] Author: TARA NATARAJAN PA-C Service: ? Author Type: Physician Outside Salesman Type: Progress Notes Filed: 05/01/2024 10:26 Note Text: [facility] VIRTUAL VISIT This is a virtual visit using Woisio video visit. It required patient-provider interaction for the medical decision making as documented below. I have communicated my name and active licensure. The patient's identity and physical location were verified at the time of this visit. Either the patient or their legal inbound sales representative has been informed of the risks and benefits of -- and alternatives to -- treatment through a remote evaluation and consents to proceed with the evaluation remotely. The patient consented to the use of ambient AI software for draft documentation of the visit consistent with [facility]?s Notice of Privacy Practices. 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 They are an established patient of Dr. Barbara Calles, last seen on October 19, 2022. At that time she had been seizure-free since August 2017. Interval History: Julia experienced a grand mal seizure on March 30, 2024, at home while doing laundry. Her daughter heard a thud and found her seizing on the floor. Emergency services were called, and during transport to [facility], she had a prolonged seizure (she was told by her it lasted an hour), during which she vomited and bit her tongue severely. She was intubated and transferred to [facility], where she was admitted to the neuro ICU for breakthrough seizures. She had missed several doses of Keppra prior to the seizures (both doses the day before, and the morning of the seizure). A CT scan showed no changes from previous imaging. She was discharged the following day and has not had any seizures since. Julia reports missing her medication due to stress. She has been adherent since the incident. She does not report any side effects from Keppra and has not had any medication changes or new diagnoses since the last visit. She is not currently seeing a counselor but has support from friends and family. She continues to follow up with the brain tumor department and has an MRI scheduled (upon review of appointments I do not see one scheduled). Past Diagnostic Results: - (03/2024) CT Head: IMPRESSION: 1. No CT evidence of acute intracranial abnormality 2. Status post right frontal craniotomy. Redemonstration of decreased attenuation right frontal lobe, insula and anterior right temporal lobe consistent with encephalomalacia and gliosis as demonstrated on previous MRI unchanged. 3.Asymmetry right side suprasellar cistern correlating with known residual right clinoid meningioma. Occupation: continues to work in accounts payable Driving: yes CURRENT OUTPATIENT MEDICATIONS: Current Outpatient Medications Medication Sig levETIRAcetam (KEPPRA) 1,000 mg tablet Take 1 tablet by mouth two times a day. midazolam (NAYZILAM) 5 mg/spray (0.1 mL) nasal spray Use 1 [place] in the nose as needed for seizures lasting longer than 2 minutes (or for seizure cluster -2 or more seizures within 8 hours) for up to 30 days. May repeat dose in alternate nostril after 10 minutes based on response and tolerability. meloxicam (MOBIC) 15 mg tablet Take 15 mg by mouth once daily. As needed No current facility-administered medications for this visit. PAST MEDICAL HISTORY Diagnosis Date Anemia Brain tumor (HCC) Epilepsy (HCC) Meningioma (HCC) Mixed connective tissue disease (HCC) Pre-eclampsia PAST SURGICAL HISTORY Procedure Laterality Date BREAST AUGMENTATION W/PROSTHETIC IMPLANT ~1997 Saline implants-no complications. DELIVERY ONLY 2 C-sections ORBITOCRNL APPR MID CRANIAL FOSSA TEMPORAL LOBE 09/04/2017 RESCJ/EXC LES PARASELLAR SINUS CLIVUS/MSB IDRL 09/04/2017 STRTCTC CPTR ASSTD PX CRANIAL INTRADURAL 09/04/2017 FAMILY HISTORY Problem Relation Age of Onset None Mother None Father Cataract Maternal Grandmother Cataract Maternal Grandfather Glaucoma Paternal Grandmother Cataract Paternal Grandmother Cataract Paternal Grandfather ASSESSMENT: Julia Aranda is a 53 year old female with history of seizures in setting of clinoid meningioma. INTERVAL A/P: 1. Seizure (HCC) (R56.9) 2. Focal epilepsy (HCC) (G40.109) - Recent grand mal seizure on March 30, 2024, after missing three doses of levetiracetam 1000 mg BID; no seizures since resuming medication. - Hospitalized in neuro ICU for breakthrough seizures; CT head showed unchanged right frontal craniotomy with encephalomalacia. - LABS: levetiracetam serum level - Continue Levetiracetam 1000 mg BID. Rx escripted. - Educated patient on the importance of medication adherence and the potential for stress to trigger seizures. - Seizure rescue: Start Nasal Midazolam (Nayzilam), for prolonged seizure and seizure clusters - Advised no driving until levetiracetam level is obtained and patient remains seizure-free (~2-3 months); potential to release driving restrictions sooner based on clinical stability. - Patient understands and agrees with the treatment plan. 3. Meningioma (HCC) (D32.9) - Follow-up with [facility] [place] (due for annual MRI and visit) - No changes in meningioma status based on recent CT head. I spent a total of 30 minutes on the date of the service which included preparing to see the patient, [id number] patient care, completing clinical documentation, counseling and educating the patient/family/caregiver, and ordering medications, tests, or procedures. Tara Natarajan PA-C 05/01/2024 PLAN OF CARE Observed: 03/31/2024 3:35 PM Status: COMPLETED Source: [facility] ID: [id number] Author: ALVERTO MCCOY ? Service: Pharmacy Author Type: Lecturer In Marketing Type: Plan of Care Filed: 03/31/2024 16:15 Note Text: PHARMACY BEDSIDE DELIVERY SERVICE Patient Name: Julia Aranda The marked outpatient medications were Filled at: [facility] and delivered to the patient's bedside to Medication List CONTINUE taking these medications levETIRAcetam 1,000 mg tablet Commonly known as: KEPPRA Take 1 tablet by mouth two times a day. MEDICATION: DELIVERED meloxicam 15 mg tablet Commonly known as: MOBIC MEDICATION: MED UPDATE You might also be taking other medications not listed above. If you have questions about any of your other medications, talk to the person who prescribed them or your Primary Care Provider. Alverto Mccoy March 31, 2024 4:14 PM XR ABDOMEN 1V SUPINE Observed: 11:10 AM Status: F Source: [facility] * * *Final Report* * * DATE OF EXAM: Mar 31 2024 11:10AM RADHA 5289 - XR ABDOMEN 1V SUPINE / PROCEDURE REASON: Abdominal distension * * * * Physician Interpretation * * * * SUPINE PORTABLE ABDOMEN 03/31/2024 History: Abdominal distention. TECHNIQUE: Supine portable abdomen, 1 image(s). COMPARISON: None RESULT: Findings- see impression. IMPRESSION: Gas distention without dilation of the small bowel and gas throughout the colon. No findings for obstruction but could represent mild ileus. There are 2 tubal ligation clips on the LEFT side of the pelvis. Safety Council Director[facility] Transcribe Date/Time: Mar 31 2024 11:35A Dictated by : TOD ORTEGA MD This examination was interpreted and the report reviewed and electronically signed by: TOD ORTEGA MD on Mar 31 2024 11:36AM EST [id number] PROGRESS Observed: 03/31/2024 8:21 AM Status: COMPLETED Source: [facility] HNO ID: [id number] Author: TAM DONATO APRN.SPEAR FISHER Service: Neurology ICU Author Type: Nurse Practitioner Type: Progress Notes Filed: 03/31/2024 08:22 Note Text: SERVICE DATE: 03/31/2024 SERVICE TIME: 8:21 AM NEURO ICU PROGRESS NOTE DATE OF ADMISSION: 03/30/2024 Subjective Hospital Course: 03/30/2024: Admit to [facility] NICU for seizure activity, extubated shortly after arrival Events Since Last Note: no acute events overnight, clinical exam stable without concern for seizure activity Objective BP 121/83 Pulse 77 Temp 36.7 ?C (98.1 ?F) (Oral) Resp 27 Ht 165.1 cm (5' 5) Wt 79.6 kg (175 lb 7.8 oz) LMP 2019 (Approximate) SpO2 97% BMI 29.20 kg/m? Weight change: Neuro: Awake, alert, flat affect, attentive and follows commands throughout. PERRL 3mm, MLG, EOMI, face symmetric, speech clear and coherent. Motor: BUE: 5/5, BLE: 5/5, SILT CV: RRR, no audible murmurs, gallops or rubs Pulm: CTA bilaterally, symmetrical excursion, Mechanical Ventilation: No. Supplemental Oxygen: No GI/: +BS, abdomen soft, non-distended, non-tender Skin/Extremities: Edema- No Peripheral pulses- Present all extremities Diagnostic tests reviewed for today's visit: Most recent labs and imaging results. Lines, Drains, and Airways Line Duration Peripheral 03/30/24 1254 Left Antecubital 22 Gauge <1 day Peripheral 03/30/24 1640 [facility] Short Right Antecubital 20 Gauge <1 day ICU Checklist Last Documented/Reviewed time: 03/31/2024 8:15 AM ICU Consent Complete?: No ICU Code Status History assess/Full code by default: Yes, will address today A= Assess, Prevent, Manage Pain Pain adequately controlled?: Yes C= Choice of Sedation and Analgesia RASS at Goal?: Yes B= Both Spontaneous Awakening and Breathing Trials Ventilator: None D= Delirium: Assess, Prevent and Manage ICU Delirium Status: CAM Negative - no action required Sleep adequate?: Yes Restraint Status: None E= Early Mobility/Excercise ICU Mobility: ICU Mobility Goal: Bed rest/turns only, Walk F= Family Engagement and Empowerment ICU plan of care visit at bedside in last 24 hours: Yes, Provider, RN, Patient/ designee ICU Disposition: ICU Disposition-POC Detail: To be determined Prevention: Line Status: None [place] Status: None Pressure Injury Status: None GI/Stress Ulcer Prophylaxis: None - not required Nutrition is at Goal: Yes VTE Prophylaxis: Chemoprophylaxis: Heparin SQ PERSONAL INVOLVEMENT IN CARE: Reviewing initiation, responses and adjustments to therapies, coordination of care, and updating family with Staff Physician, Dr. Nance. Assessment AND Plan Neurology * Seizure (HCC)- (present on admission) On LEV 1G BID at home Given 4.5G LEV at OSH ED Patient reports forgetting to take both doses of Keppra on 03/29/2024, denies purposeful non-compliance -monitor clinical exam off EEG -ASMs: LEV 1G BID -General Neurology/epilepsy following -further imaging as directed by primary team Pulmonary Acute respiratory failure (HCC)- (present on admission) Extubated upon arrival to NICU -Supplemental oxygen as needed to maintain SpO2>94% - tolerating RA -PT/OT/OOB as tolerated Nephrology Hypokalemia- (present on admission) -NICU electrolyte replacement protocol -daily chemistry Hematology Leukocytosis- (present on admission) Likely reactive in the setting of seizure activity, now resolved Genetics/Metabolics Lactic acidosis- (present on admission) Secondary to seizure activity, resolved Other Flat affect- (present on admission) Flat affect on exam, patient admits to social conflicts at home, denies SI/HI or purposeful non-compliance of ASM -Psychiatry/Psychology evaluation offered to patient, declining at this time -encourage close follow-up Medication and Non-Pharmacologic VTE Prophylaxis/Anticoagulants Anticoagulant AND Antiplatelet Medications (From admission, onward) Start Dose Route Frequency Last Action Ordered Stop 03/30/24 1700 heparin 5,000 Units injection 5,000 Units SUBCUTANEOUS EVERY 8 HOURS Given, 03/31 0600 03/30/24 1641 -- VTE Prophylaxis: VTE prophylaxis appropriate Plan of care discussed with: Provider, RN, Patient Evaluation and Exam This patient has a high probability of sudden, clinically significant deterioration, which requires the highest level of LIP preparedness to intervene urgently. I managed/supervized life or organ supporting interventions that required frequent LIP assessment. I devoted my full attention to the direct care of this patient for the amount of time indicated below. Time I spent with family or surrogate(s) is included only if the patient was incapable of providing the necessary information or participating in medical decision making. Time devoted to teaching or to any procedures I billed separately is not included. IMPRESSION/PLAN The patient is critically ill because of imminent risk of acute brain damage, acute respiratory failure, and and continues to require support. I provided the following services during this episode: Reviewed the pertinent labs. Reviewed the CT scan of the brain. Close personal montoring of the Neurological examination [facility] Staff LIP note of personal involvement in Care CRITICAL CARE: I personally spent 31 minutes of critical care time involved in the care of this patient. This time spent excluded other procedures/services provided by me. SIGNATURE: Tam Donato APRN.CNP PATIENT NAME: Julia Aranda DATE: March 31, 2024 TIME: 8:21 AM COMP METAB 2000 PNL SERPL Collected: 10:37 PM Status: F Source: [facility] Order Comment: Specimen Type : BLOOD SPECIMEN Ordering Facility: [facility] Address: [address] [place] [address] TYPE CODE TESTS RESULT OUT OF RANGE REFERENCE UNITS LAB 2885-2(LOINC) Prot SerPl-mCnc 6.1 Low 6.3-8.0 g/dL LAB 1751-7(LOINC) Albumin SerPl-mCnc 3.8 Low 3.9-4.9 g/dL LAB 26926-3(LOINC) Calcium SerPl-mCnc 8.3 Low 8.5-10.2 mg/dL LAB 1975-2(LOINC) Bilirub SerPl-mCnc 0.2 0.2-1.3 mg/dL LAB 6768-6(LOINC) ALP SerPl-cCnc 68 34-123 U/L LAB 1920-8(LOINC) AST SerPl-cCnc 33 13-35 U/L LAB 1742-6(LOINC) ALT SerPl-cCnc 32 7-38 U/L LAB 2345-7(LOINC) Glucose SerPl-mCnc 88 74-99 mg/dL Result Comment: The [place] Diabetes Association (ADA) provides guidance for cutoff values for fasting glucose and random glucose. The ADA defines fasting as no caloric intake for at least 8 hours. Fasting plasma glucose results between 100 to 125 mg/dL indicate increased risk for diabetes (prediabetes). Fasting plasma glucose results greater than or equal to 126 mg/dL meet the criteria for diagnosis of diabetes. In the absence of unequivocal hyperglycemia, results should be confirmed by repeat testing. In a patient with classic symptoms of hyperglycemia or hyperglycemic crisis, random plasma glucose results greater than or equal to 200 mg/dL meet the criteria for diagnosis of diabetes. Reference: Standards of Medical Care in Diabetes 2016, [place] Diabetes Association. Diabetes Care. 2016.39(Suppl 1). LAB 3094-0(LOINC) BUN SerPl-mCnc 8 7-21 mg/ dL LAB 2160-0(LOINC) Creat SerPl-mCnc 0.69 0.58-0.96 mg/dL LAB 2951-2(LOINC) Sodium SerPl-sCnc 143 136-144 mmol/L LAB 2823-3(LOINC) Potassium SerPl-sCnc 3.3 Low 3.7-5.1 mmol/L LAB 2075-0(LOINC) Chloride SerPl-sCnc 109 High 98-107 mmol/L LAB 2028-9(LOINC) CO2 SerPl-sCnc 20 Low 22-30 mmo l/L LAB 83704-3(LOINC) Anion Gap SerPl-sCnc 14 8-15 mmol/L LAB 31325-6(LOINC) Creatinine + eGFR Pnl SerPlBld 104 >=60 mL/min/1 .73m??? Result Comment: Estimated Gl omerular Filtration Rate (eGFR) is calculated using the 2020 CKD-EPI creatinine equation. This equation utilizes serum creatinine, sex, and age as parameters. The creatinine assay has traceable calibration to isotope dilution-mass spectrometry. Refer to KDIGO guidelines for clinical interpretation. In patients with unstable renal function, e.g. those with acute kidney injury, the eGFR may not accurately reflect actual GFR. Performed By: #### 43421-8, 2777-1, 96612-4 #### [facility] CLIA [id number] [address] [place] [address] [place] MAGNESIUM SERPL-MCNC Collected: 025 10:37 PM Status: F Source: [facility] Comment: Specimen Type : BLOOD SPECIMEN Ordering Facility: [facility] Address: [address] [place] [address] TYPE CODE TESTS RESULT OUT OF RANGE REFERENCE UNITS LAB 93282-2([facility]) Magnesium SerPl-mCnc 2.0 1.7-2.3 mg/dL Performed By: #### 34128-1, 2777-1, 22997-8 #### [facility] CLIA [id number] [address] [place] [address] [place] PHOSPHATE SERPL-MCNC Collected: 10:37 PM Status: F Source: [facility] Comment: Specimen Type : BLOOD SPECIMEN Ordering Facility: [facility] Address: [address] [place] [address] TYPE CODE TESTS RESULT OUT OF RANGE REFERENCE UNITS LAB 2777-1([facility]) Phosphate SerPl-mCnc 2.8 2.7-4.8 mg/dL Performed By: #### 82700-9, 2777-1, 46881-1 #### [facility] CLIA [id number] [address] [place] [address] [place] CA-I SERPL-SCNC Collected: 10:37 PM Status: F Source: [facility] Comment: Specimen Type : BLOOD SPECIMEN Ordering Facility: [facility] Address: [address] [place] [address] TYPE CODE TESTS RESULT OUT OF RANGE REFERENCE UNITS LAB 34265-9([facility]) Ca-I adj pH7.4 Bld-sCnc 1.14 1.08-1.30 mmol/L LAB 52073-9([facility]) Ca-I Bld-mCnc 1.20 1.08-1.30 mmol/L Performed By: #### 1995-0 ## ## [facility] CLIA [id number] [address] [place] [address] [place] CBC W AUTO DIFF BLD Collected: 03/30/2024 10:37 PM S tatus: F Source: [facility] Order Comment: Specimen Type : BLOOD SPECIMEN Ordering Facility: [facility] Address: [address] [place] [address] TYPE CODE TESTS RESULT OUT OF RANGE REFERENCE UNITS LAB 6690-2([facility]) WBC # Bld Auto 9.66 3.70-11.00 k/uL LAB 789-8([facility]) RBC # Bld Auto 3.93 3.90-5.20 m/ uL LAB 718-7([facility]) Hgb Bld-mCnc 11.9 11.5-15.5 g/dL LAB 4544-3([facility]) Hct VFr Bld Auto 34.5 Low 36.0-46.0 % LAB 787-2([facility]) MCV RBC Auto 87.8 80.0-100.0 fL LAB 785-6([facility]) MCH RBC Qn Auto 30.3 26.0-34.0 p g LAB 786-4([facility]) MCHC RBC Auto-mCnc 34.5 30.5-36.0 g/dL LAB 13313-3([facility]) RDW RBC-Rto 12.3 11.5-15.0 % LAB 777-3([facility]) Platelet # Bld Auto 194 150-400 k/uL LAB 87963-9([facility]) PMV Bld Auto 10.1 9.0-12.7 fL LAB 770-8([facility]) Neutrophils/leuk NFr Bld Auto 82.0 % LAB 751-8([facility]) Neutrophils # Bld Auto 7.92 High 1.45-7.50 k/uL LAB 736-9([facility]) Lymphocytes/leuk NFr Bld Auto 11.2 % LAB 731-0([facility]) Lymphocytes # Bld Auto 1.08 1.00-4.00 k/uL LAB 5905-5([facility]) Monocytes/leuk NFr Bld Auto 6.2 % LAB 742-7([facility]) Monocytes # Bld Auto 0.60 <0.87 k/uL LAB 713-8([facility]) Eosinophil/leuk NFr Bld Auto 0.0 % LAB 711-2([facility]) Eosinophil # Bld Auto <0.03 <0.46 k/uL LAB 706-2([facility]) Basophils/leuk NFr Bld Auto 0.2 % LAB 704-7(LOINC) Basophils # Bld Auto <0.03 <0.11 k/uL LAB 35827-4(LOINC) Imm Granulocytes/yovani k NFr Bld Auto 0.4 % LAB 40244-8(LOINC) Imm Granulocytes # Bld Auto 0.04 <0.10 k/uL LAB 81381-3(LOINC) nRBC/100 WBC Bld-Rto 0.0 /100 WBC LAB 771-6(LOINC) nRBC # Bld Auto <0.01 <0.01 k/u L LAB 77573-2(LOINC) Differential method Bld Auto Performed By: #### 23446-7 # ### [facility] CLIA [id number] [address] [place] [address] [place] G[place] + [place] PNL BLDV Collected: 5 5:39 PM Status: F Source: [facility] Order Comment: Specimen Type : VENOUS BLOOD SPECIMEN Ordering Facility: [facility] Address: [address] [place] [address] TYPE CODE TESTS RESULT OUT OF RANGE REFERENCE UNITS LAB 2746-6(LOINC) pH BldV 7.31 Low 7.32-7.42 LAB 2020-4(LOINC) pCO2 BldV 41 Low 42-55 mmHg LAB 2705-2(LOINC) pO2 BldV 41 35-45 mmHg LAB 2711-0(LOINC) SaO2 % BldV 73 60-85 % LAB BDVEN BASE DEFICIT, VENOUS -5 Low -2-0 mmol/L LAB 55471-1(LOINC) HCO3 BldV-sCnc 20 Low 24-28 mmol/L LAB 2716-9(LOINC) OxyHgb MFr BldV 72 60-85 % LAB 2032-1(LOINC) COHgb MFr BldV 0.8 0.0-2.0 % Result Comment: Carboxyhemog lobin Reference Range for Smokers: 2.0-8.0% LAB 2614-6(LOINC) MetHgb MFr Bld 0.9 0.0-1.5 % LAB 2947-0(LOINC) Sodium Bld-sCnc 144 136-144 mmol/L LAB 6298-4(LOINC) Potassium Bld-sCnc 3.9 3.5-5.0 mmol/L LAB 89742-2([facility]) Ca-I Bld-mCnc 1.21 1.08-1.30 m mol/L LAB 45468-2([facility]) Ca-I adj pH7.4 BldA-sCnc 1.16 1.08-1.30 mmol/L LAB 2339-0([facility]) Glucose Bld-mCnc 86 60-105 mg/dL LAB 47285-2([facility]) Lactate Bld-sCnc 3.8 High 0.5-2.2 mmol/L LAB 718-7([facility]) Hgb Bld-mCnc 13.8 11.5-15.5 g/dL LAB 4544-3([facility]) Hct VFr Bld Auto 42.3 36.0-46.0 % LAB VTMP TEMPERATURE, BODY 37.0 C LAB VO2TH O2 THERAPY RA=Room Air Performed By: #### 97987-1 # ### [facility] CLIA [id number] [address] [place] [address] [place] TOXICOLOGY SCREEN, ROUTINE URINE Collected: 03/30/2024 5:39 PM Status: F Source: [facility] Order Comment: Specimen Type : URINE SPECIMEN Ordering Facility: [facility] Address: [address] [place] [address] TYPE CODE TESTS RESULT OUT OF RANGE REFERENCE UNITS LAB 89358-7([facility] [facility]) PCP Ur Ql Scn Negative Negative Result Comment: Cutoff thres hold at 25 ng/mL. LAB UBENZR BENZODIAZEPINES, UR Preliminary positive Abnormal Negative Result Comment: Cutoff thres hold at 200 ng/mL. LAB 3397-7([facility]) Cocaine Ur Ql Negative Negative Result Comment: Cutoff thres hold at 300 ng/mL. LAB 57268-4([facility]) Amphetamines Ur Cfm-mCnc Negative Negative Result Comment: Cutoff thres hold at 1000 ng/mL. LAB 39490-2([facility]) Cannabinoids Ur Ql Scn Preliminary positive Abnormal Negative LAB 83868-1([facility]) Opiates Ur Ql Scn Negative Negative Result Comment: Cutoff thres hold at 300 ng/mL. LAB UBARBR BARBITURATES, URINE Negative Negative Result Comment: Cutoff thres hold at 200 ng/mL. LAB 5645-7(LOINC) Ethanol Ur-mCnc <11 <11 mg /dL LAB 71721-9(LOINC) oxyCODONE dish stacker Ur Scn-mCnc Negative Negative Result Comment: Cutoff thres hold at 100 ng/mL. Performed By: #### UTOX2 ### # [facility] CLIA [id number] [address] [place] [address] [place] URINALYSIS, DIPSTICK ONLY Collected: 03/30/2024 4:50 PM Status: F Source: [facility] Order Comment: Specimen Type : URINE SPECIMEN Ordering Facility: [facility] Address: [address] [place] [address] TYPE CODE TESTS RESULT OUT OF RANGE REFERENCE UNITS LAB 5778-6(LOINC) Color Ur Yellow Yellow LAB 99257-0(LOINC) Clarity Spec Clear Clear LAB 5792-7(LOINC) Glucose Ur Strip-mCnc 1+ Abnormal Negative LAB 5770-3(LOINC) Bilirub Ur Ql Strip Negative Negative LAB 2514-8(LOINC) Ketones Ur Strip Negative Negative LAB 5811-5(LOINC) Sp Gr Ur Strip 1.011 1.005-1.030 LAB 5794-3(LOINC) Hgb Ur Ql Strip Trace Abnormal Negative LAB 5803-2(LOINC) pH Ur Strip 6.0 <8.5 LAB 5804-0(LOINC) Prot Ur Strip-mCnc 1+ Abnormal Negative LAB 5818-0(LOINC) Urobilinogen Ur Strip 0.2 EU/dL 0.2-1.0 EU/dL LAB 5802-4(LOINC) Nitrite Ur Ql Strip Negative Negative LAB 5799-2(LOINC) Leukocyte esterase Ur Ql Strip Negative Negative Performed By: #### UA #### [facility] CLIA [id number] [address] [place] [address] [place] STAPHYLOCOCCUS AUREUS AND MR SA SCREEN, PCR, NASAL Collected: 03/30/2024 4:45 PM Status: F Source: [facility] Order Comment: Specimen Type : SWAB Ordering Facility: [facility] Address: [address] [place] [address] TYPE CODE TESTS RESULT OUT OF RANGE REFERENCE UNITS LAB 35539-0(LOINC) SA+MRSA Pnl Nose GARCIA+probe Not Detected Not Detected Performed By: #### SAPCR ### # [facility] CLIA [id number] [address] [place] [address] [place] PT PNL PPP Collected: 03/30/2024 4:45 PM Status: F Source: [facility] Order Comment: Specimen Type : BLOOD SPECIMEN Ordering Facility: [facility] Address: [address] [place] [address] TYPE CODE TESTS RESULT OUT OF RANGE REFERENCE UNITS LAB 5902-2(LOINC) Prothrombin time 10.9 9.7-13.0 sec LAB 6301-6(LOINC) INR PPP 1.0 0.9-1.3 Result Comment: Vitamin K An tagonist (VKA) Therapeutic Range: INR 2 to 3 (Target INR of 2.5) Note: For patients treated with VKA drugs, such as warfarin, the [place] [employer] 2012 Guideline recommends a therapeutic INR range of 2 to 3 (target INR of 2.5). This recommendation includes high-risk patients with antiphospholipid syndrome with previous arterial or venous thromboembolism, current-generation mechanical or bioprosthetic aortic heart valve replacement. Note: Patients with mechanical aortic valve replacement and additional risk factors for thromboembolic events (atrial fibrillation, previous thromboembolism, LV dysfunction, hypercoagulable conditions) or an older generation mechanical AVR (i.e., ball in-Cage) or any mechanical MVR should have a INR therapeutic range of 2.5 to 3.5 (target INR of 3). Ozzie GH, et al. Chest 2012, 141:7S-47S Hieu RA, et al. [facility] 2017, 70: 252-289 Performed By: #### 44313-8, 93009-2 #### [facility] CLIA [id number] [address] [place] [address] [place] APTT PPP Collected: 4:45 PM Status: F Source: [facility] Order Comment: Specimen Type : BLOOD SPECIMEN Ordering Facility: [facility] Address: [address] [place] [address] TYPE CODE TESTS RESULT OUT OF RANGE REFERENCE UNITS LAB 85895-8([facility]) aPTT PPP 22.0 Low 23.0-32.4 sec Performed By: #### 67168-0, 99338-1 #### [facility] CLIA [id number] [address] [place] [address] [place] CA-I SERPL-SCNC Collected: 4:45 PM Status: F Source: [facility] Order Comment: Specimen Type : BLOOD SPECIMEN Ordering Facility: [facility] Address: [address] [place] [address] TYPE CODE TESTS RESULT OUT OF RANGE REFERENCE UNITS LAB 98913-1([facility]) Ca-I adj pH7.4 Bld-sCnc 1.10 1.08-1.30 mmol/L LAB 68940-1([facility]) Ca-I Bld-mCnc 1.12 1.08-1.30 mmol/L Performed By: #### 1995-0 ## ## [facility] CLIA [id number] [address] [place] [address] [place] MAGNESIUM SERPL-MCNC Collected: 03/30/2024 4:45 PM S tatus: F Source: [facility] Comment: Specimen Type : BLOOD SPECIMEN Ordering Facility: [facility] Address: [address] [place] [address] TYPE CODE TESTS RESULT OUT OF RANGE REFERENCE UNITS LAB 69634-5([facility]) Magnesium SerPl-mCnc 2.5 High 1.7-2.3 mg/dL Performed By: #### 09526-6, 2777-1 #### [facility] CLIA [id number] [address] [place] [address] [place] PHOSPHATE SERPL-MCNC Collected: 03/30/2024 4:45 PM S tatus: F Source: [facility] Comment: Specimen Type : BLOOD SPECIMEN Ordering Facility: [facility] Address: [address] [place] [address] TYPE CODE TESTS RESULT OUT OF RANGE REFERENCE UNITS LAB 2777-1([facility]) Phosphate SerPl-mCnc 1.4 Low 2.7-4.8 mg/dL Performed By: #### 18333-2, 2777-1 #### [facility] CLIA [id number] [address] [facility] [address] [address] [place] CBC W AUTO DIFF BLD Collected: 03/30/2024 4:[address] atus: F Source: [facility] Order Comment: Specimen Type : BLOOD SPECIMEN Ordering Facility: [facility] Address: [address] [place] [address] TYPE CODE TESTS RESULT OUT OF RANGE REFERENCE UNITS LAB 6690-2([facility]) WBC # Bld Auto 14.07 High 3.70-11.00 k/uL LAB 789-8([facility]) RBC # Bld Auto 4.64 3.90-5.20 m/ uL LAB 718-7([facility]) Hgb Bld-mCnc 13.9 11.5-15.5 g/dL LAB 4544-3([facility]) Hct VFr Bld Auto 40.6 36.0-46.0 % LAB 787-2([facility]) MCV RBC Auto 87.5 80.0-100.0 fL LAB 785-6([facility]) MCH RBC Qn Auto 30.0 26.0-34.0 p g LAB 786-4([facility]) MCHC RBC Auto-mCnc 34.2 30.5-36.0 g/dL LAB 02418-0([facility]) RDW RBC-Rto 12.4 11.5-15.0 % LAB 777-3([facility]) Platelet # Bld Auto 250 150-400 k/uL LAB 28839-8([facility]) PMV Bld Auto 10.0 9.0-12.7 fL LAB 770-8(LOINC) Neutrophils/leuk NFr Bld Auto 85.5 % LAB 751-8(LOINC) Neutrophils # Bld Auto 12.04 High 1.45-7.50 k/uL LAB 736-9(INC) Lymphocytes/leuk NFr Bld Auto 7.5 % LAB 731-0(LOINC) Lymphocytes # Bld Auto 1.05 1.00-4.00 k/uL LAB 5905-5(LOINC) Monocytes/leuk NFr Bld Auto 5.9 % LAB 742-7(LOINC) Monocytes # Bld Auto 0.83 <0.87 k/uL LAB 713-8(LOINC) Eosinophil/leuk NFr Bld Auto 0.1 % LAB 711-2(INC) Eosinophil # Bld Auto <0.03 <0.46 k/uL LAB 706-2(INC) Basophils/leuk NFr Bld Auto 0.2 % LAB 704-7(LOINC) Basophils # Bld Auto 0.03 <0.11 k/uL LAB 74481-6(INC) Imm Granulocytes/yovani k NFr Bld Auto 0.8 % LAB 71624-8([facility]) Imm Granulocytes # Bld Auto 0.11 High <0.10 k/uL LAB 88474-8(INC) nRBC/100 WBC Bld-Rto 0.0 /100 WBC LAB 771-6([facility]) nRBC # Bld Auto <0.01 <0.01 k/u L LAB 18840-5([facility]) Differential method Bld Auto Performed By: #### 20282-7 # ### [facility] CLIA [id number] [address] [place] [address] [place] OSMOLALITY SERPL Collected: 03/30/2024 4:45 PM Statu s: F Source: [facility] Order Comment: Specimen Type : BLOOD SPECIMEN Ordering Facility: [facility] Address: [address] [place] [address] TYPE CODE TESTS RESULT OUT OF RANGE REFERENCE UNITS LAB 2692-2([facility]) Osmolality SerPl 294 275-300 mOsm/kg Performed By: #### 2692-2 ## ## [facility] CLIA [id number] [address] [place] [address] [place] HISTORY PHYSICAL Observed: 03/30/2024 4:40 PM Status: COMPLETED Source: [facility] HNO ID: [id number] Author: TAM DONATO APRN.SPEAR FISHER Service: Neurology ICU Author Type: Nurse Practitioner Type: H&P Filed: 03/30/2024 16:41 Note Text: SERVICE DATE: 03/30/2024 SERVICE TIME: 4:40 PM NEUROLOGICAL INTENSIVE CARE UNIT HISTORY AND PHYSICAL REASON FOR ADMISSION: Breakthrough Seizures Subjective HPI: Miss Aranda is a 53yo female with PMH significant for Meningioma s/p resection and GKRS, seizures (LEV 1G BID), who presents to [facility] NICU for multiple clinical seizures. Miss Aranda was found down at home with seizure-like activity on 03/30/2024. EMS called and patient transferred to OSH. Enroute to ED patient had additional clinical seizure, aborted with 2.5mg IV Midazolam. In ED patient appreciated to be unresponsive, was intubated for airway protection and loaded with LEV 4.5G, CTH performed without acute process. Patient maintained on Propofol infusion and transferred to F NICU for further evaluation and management with continuous EEG monitoring. PAST MEDICAL HISTORY Diagnosis Date Anemia Brain tumor (HCC) Epilepsy (HCC) Meningioma (HCC) Mixed connective tissue disease (HCC) Pre-eclampsia PAST SURGICAL HISTORY Procedure Laterality Date BREAST AUGMENTATION W/PROSTHETIC IMPLANT ~1997 Saline implants-no complications. DELIVERY ONLY 2 C-sections ORBITOCRNL APPR MID CRANIAL FOSSA TEMPORAL LOBE 09/04/2017 RESCJ/EXC LES PARASELLAR SINUS CLIVUS/MSB IDRL 09/04/2017 STRTCTC CPTR ASSTD PX CRANIAL INTRADURAL 09/04/2017 FAMILY HISTORY Problem Relation Age of Onset None Mother None Father Cataract Maternal Grandmother Cataract Maternal Grandfather Glaucoma Paternal Grandmother Cataract Paternal Grandmother Cataract Paternal Grandfather ALLERGIES Allergen Reactions Bactrim [Sulfametho* Hives Sulfa (Sulfonamide * Unknown PRIOR TO ADMISSION MEDICATIONS: levETIRAcetam (KEPPRA) 1,000 mg tablet, Take 1 tablet by mouth two times a day., Disp: 180 tablet, Rfl: 3 meloxicam (MOBIC) 15 mg tablet, Take 15 mg by mouth once daily. As needed , Disp: , Rfl: Social History Tobacco Use Smoking status: Former Current packs/day: 0.00 Average packs/day: 0.3 packs/day for 20.0 years (5.0 ttl pk-yrs) Types: Cigarettes Start date: 09/03/1997 Quit date: 09/03/2017 Years since quittin.5 Smokeless tobacco: Never Vaping Use Vaping status: Never Used Substance Use Topics Alcohol use: Not Currently Drug use: No Employer And Job Title: None on file Years Of Education Completed: Not specified Marital Status: Objective Vital Signs (Last 24hrs min/max): BP 129/88 Pulse 73 Resp 18 LMP 2019 (Approximate) SpO2 95% PHYSICAL EXAM: NEUROLOGICAL: GCS: Eyes: 4. Spontaneous Verbal: 5: Oriented Motor: 6: Obeys Motor commands Total: 15 MOTOR STRENGTH: Upper and lower extremity 5/5 bilaterally SENSATION: Intact light touch COORDINATION: Not assessed CV: RRr, no audible murmurs, gallops or rubs Pulm: CTA bilaterally, symmetrical excursion, Mechanical Ventilation: GI/: +BS, abdomen soft, non-distended, non-tender Skin/Extremities: Edema- No Peripheral pulses- Present all extremities DATA: Diagnostic tests reviewed for today's visit: Most recent labs and imaging results. Lines, Drains, and Airways Line Duration Peripheral 03/30/24 1254 Left Antecubital 22 Gauge <1 day Peripheral 03/30/24 1255 [facility] Right Antecubital 20 Gauge <1 day Drain Duration GI/ Feeding 03/30/24 1314 [facility] Gastric Mouth <1 day Indwelling Urinary Catheter 03/30/24 1403 [facility] [place] 16 Fr <1 day PERSONAL INVOLVEMENT IN CARE: Reviewing initiation, responses and adjustments to therapies, coordination of care, and updating family with Staff Physician, Dr. Nance. Assessment AND Plan Neurology * Seizure (HCC)- (present on admission) On LEV 1G BID at home Given 4.5G LEV at OSH ED -cEEG -ASMs: LEV 1G BID -General Neurology consult -further imaging as directed by primary team -defer infectious workup for now pending further discussion with Neurology Pulmonary Acute respiratory failure (HCC)- (present on admission) Intubated for airway protection at OSH on 03/30/2024 Extubated upon arrival to NICU -Supplemental oxygen as needed to maintain SpO2>94% -PT/OT/OOB as tolerated Nephrology Hypokalemia- (present on admission) K3.2 on admission -NICU electrolyte replacement protocol -daily chemistry Hematology Leukocytosis- (present on admission) Likely reactive in the setting of seizure activity CXR without consolidation, given empiric CTX/Vanco at OSH -Check Procal -check UA/Culture -hold on further ABX pending further clinical evidence of infection -trend WBC/temp curve Genetics/Metabolics Lactic acidosis- (present on admission) Lactate 13.2 with PH of 7.00 on VBG at OSH Given 1L IVF in ED -additional 1L LRB now -start LR @ 75ml/h -Q4h VBG until lactate/PH normalized Medication and Non-Pharmacologic VTE Prophylaxis/Anticoagulants VTE Prophylaxis: VTE prophylaxis appropriate Evaluation and Exam This patient has a high probability of sudden, clinically significant deterioration, which requires the highest level of LIP preparedness to intervene urgently. I managed/supervized life or organ supporting interventions that required frequent LIP assessment. I devoted my full attention to the direct care of this patient for the amount of time indicated below. Time I spent with family or surrogate(s) is included only if the patient was incapable of providing the necessary information or participating in medical decision making. Time devoted to teaching or to any procedures I billed separately is not included. IMPRESSION/PLAN The patient is critically ill because of imminent risk of acute brain damage, acute respiratory failure, and and continues to require support. I provided the following services during this episode: Reviewed the pertinent labs. Reviewed the CT scan of the brain. Close personal montoring of the Neurological examination [facility] Staff LIP note of personal involvement in Care CRITICAL CARE: I personally spent 41 minutes of critical care time involved in the care of this patient. This time spent excluded other procedures/services provided by me. SIGNATURE: Tam Donato APRN.CNP PATIENT NAME: Julia Aranda DATE: March 30, 2024 TIME: 4:40 PM HISTORY PHYSICAL Observed: 03/30/2024 4:40 PM Status: COMPLETED Source: [facility] ID: [id number] Author: TOR MCCAULEY DO Service: Neurology General Author Type: Physician Type: H&P Filed: 03/31/2024 12:44 Note Text: INITIAL CONSULT - GENERAL NEUROLOGY SERVICE DATE: 03/30/2024 SERVICE TIME: 4:40 PM Team Requesting Consult: NICU Current Attending Provider: Jeff Alcocer* Neurology was asked by the NICU team to evaluate Julia Aranda, a 53 year old female for a chief complaint of Seizures. Our recommendations of care will be communicated by shared medical record. Reason for Evaluation: Seizures Subjective HPI: This is Ms. 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 Patient was found at home by family having a 20-minute GTC. EMS reported patient was post-ictal but responding to Y/N questions. En route to ED, patient with another seizure lasting ~2 minutes requiring Versed for rescue. On arrival to [place] ED, patient post-ictal and unresponsive to verbal or painful stimulation. Therefore, patient intubated and loaded with 4.5g of Keppra. Per ED documentation, reported patient is compliant with her medications. Labs notable for leukocytosis to 14.84, lactate of 13.2, minimal hypernatremia to 145, moderate hypokalemia to 3.2, significant hypocarbia to 10 with anion gap elevated to 30. RVP negative. UA noninfectious. Blood cultures taken. CXR clear. CTH stable compared to last MRI on 05/08/23. On arrival to [facility] NICU, patient extubated. Patient states she does not recall the seizure episodes. She is unsure of what her typical seizure looks like. She states her last was a few years ago. She reports not taking her morning or evening dose of Keppra yesterday. She endorses increased stress recently d/t marital problems. She does state she feels safe at home and has no SI. She denies lack of sleep. She denies alcohol use. She states she takes CBD/THC, but uses no other drugs. On review of last outpatient epilepsy note on 12/25/23, patient's last seizure was in August 2017. She has been following with brain tumor clinic for serial MRIs. Follow-ups recently changed to Q2 years given stability, last MRI 05/08/23. Current Facility-Administered Medications Medication Dose Route Frequency levETIRAcetam 1,000 mg tab(s) (KEPPRA) 1,000 mg ORAL/FEEDING TUBE BID senna-docusate 8.6-50 mg 1 tablet (SENNA-S) 1 tablet ORAL/FEEDING TUBE BID bisacodyl 10 mg suppository (DULCOLAX) 10 mg RECTAL DAILY PRN ondansetron (PF) 4 mg injection (ZOFRAN) 4 mg INTRAVENOUS q 4 H PRN lactated ringers 1,000 mL iv bolus 1,000 mL INTRAVENOUS ONCE lactated ringers iv infusion 75 mL/hr INTRAVENOUS CONTINUOUS acetaminophen 650 mg tab(s) (TYLENOL) 650 mg ORAL/FEEDING TUBE q 4 H PRN labetalol 5-20 mg injection syringe (NORMODYNE) 5-20 mg INTRAVENOUS q 10 MIN PRN potassium chloride 40 mEq oral powder (KLOR-CON) 40 mEq ORAL/FEEDING TUBE q 2 H PRN magnesium sulfate iv piggyback in sterile water 2 g 50 mL 2 g INTRAVENOUS PRN phosphorus 500 mg tab(s) (K PHOS NEUTRAL) 500 mg ORAL/FEEDING TUBE PRN(NO DISPENSE) PAST MEDICAL HISTORY Diagnosis Date Anemia Brain tumor (HCC) Epilepsy (HCC) Meningioma (HCC) Mixed connective tissue disease (HCC) Pre-eclampsia PAST SURGICAL HISTORY Procedure Laterality Date BREAST AUGMENTATION W/PROSTHETIC IMPLANT ~1997 Saline implants-no complications. DELIVERY ONLY 2 C-sections ORBITOCRNL APPR MID CRANIAL FOSSA TEMPORAL LOBE 09/04/2017 RESCJ/EXC LES PARASELLAR SINUS CLIVUS/MSB IDRL 09/04/2017 STRTCTC CPTR ASSTD PX CRANIAL INTRADURAL 09/04/2017 Social History Tobacco Use Smoking status: Former Current packs/day: 0.00 Average packs/day: 0.3 packs/day for 20.0 years (5.0 ttl pk-yrs) Types: Cigarettes Start date: 09/03/1997 Quit date: 09/03/2017 Years since quittin.5 Smokeless tobacco: Never Vaping Use Vaping status: Never Used Substance Use Topics Alcohol use: Not Currently Drug use: No FAMILY HISTORY Problem Relation Age of Onset None Mother None Father Cataract Maternal Grandmother Cataract Maternal Grandfather Glaucoma Paternal Grandmother Cataract Paternal Grandmother Cataract Paternal Grandfather ALLERGIES Allergen Reactions Bactrim [Sulfametho* Hives Sulfa (Sulfonamide * Unknown REVIEW OF SYSTEMS: GENERAL: No fevers or chills. HEENT: Baseline blurry vision in R eye (since meningioma resection). RESPIRATORY: No cough or SOB. CARDIOVASCULAR: No chest pain. GI: No N/V/D. : No dysuria. NEURO: See HPI Objective PHYSICAL EXAM: General Appearance: Awake and alert. Skin: Skin color, texture, turgor normal, no suspicious rashes or lesions. Head: Normocephalic. Ears: External ears normal. Oropharynx: Tongue bite b/l (R>L). Lungs: Breathing comfortably on RA. Heart: RRR on monitor. Extremities: No deformities, edema, skin discoloration. Musculoskeletal: No joint swelling or deformity. Neurological: Mental Status: Alert, oriented to person, place and time and Follows commands. Cranial Nerves: CNII: Visual cesar full to confrontation, No APD noted on exam CNIII, IV, : Pupils equal, round and reactive to light, full extraoccular movements, without nystagmus CN V: Facial sensation intact bilaterally to fine touch CN VII: Facial muscles symmetric and strong, No noted facial droop CN VIII: Hears finger rub well bilaterally CN IX: Gag Reflex Not examined CN X: Palate elevates symmetrically CN XI: Full strength shoulder shrug bilaterally CN XII: Tongue protrusion full and midline Non-Dilated Fundiscopic Examination: Deferred Examination Motor Exam: Delt Biceps Triceps Finger Flex Right 5/5 5/5 5/5 5/5 Left 5/5 5/5 5/5 5/5 Hip Flex Hip Ext BiFem (knee flex) Quads (knee ext) Gastroc (plantflx) TibAnt (Dorsiflx) Right 5/5 5/5 5/5 5/5 5/5 5/5 Left 5/5 5/5 5/5 5/5 5/5 5/5 REFLEXES Right Left Bicep 2+ 2+ Tricep 2+ 2+ BrRad 2+ 2+ Knee 2+ 2+ Ankle 0 0 Pathological Reflexes: Babinski: bilaterally Mute Response Sensation: Intact to light touch throughout. Coordination: Finger-to- nose-finger intact bilaterally and Azfj-md-aefm intact bilaterally. Gait: Not assessed. LABS/DATA: WBC Date Value 03/30/2024 14.84 k/uL 06/29/2021 5.16 k/uL 10/07/2020 7.07 k/uL 07/24/2020 7.98 k/uL 09/17/2019 6.8 thou/cmm 09/08/2017 8.43 k/uL 09/07/2017 12.24 k/uL RBC Date Value 03/30/2024 5.00 m/uL 06/29/2021 4.32 m/uL 10/07/2020 4.59 m/uL 07/24/2020 4.50 m/uL 09/17/2019 4.35 mil/cmm 09/08/2017 3.36 m/uL 09/07/2017 3.49 m/uL Platelet Count Date Value 03/30/2024 320 k/uL 06/29/2021 214 k/uL 10/07/2020 256 k/uL 07/24/2020 260 k/uL 09/17/2019 233 thou/cmm 09/08/2017 216 k/uL 09/07/2017 198 k/uL BUN (mg/dL) Date Value 03/30/2024 8 06/29/2021 12 10/07/2020 16 07/24/2020 15 09/17/2019 15 09/08/2017 19 09/07/2017 11 Creatinine (mg/dL) Date Value 03/30/2024 0.87 06/29/2021 0.74 10/07/2020 0.69 07/24/2020 0.67 09/17/2019 0.71 09/08/2017 0.61 09/07/2017 0.50 Lab Results Component Value Date NEUTP 61.8 03/30/2024 NEUTP 57.9 10/07/2020 ABSNEUT 9.17 03/30/2024 ABSNEUT 4.08 10/07/2020 LYMPHP 26.3 03/30/2024 LYMPHP 34.4 10/07/2020 ABSLYMPH 3.91 03/30/2024 ABSLYMPH 2.43 10/07/2020 ABSMONO 1.11 03/30/2024 ABSMONO 0.41 10/07/2020 EODINP 1.5 03/30/2024 EODINP 1.1 10/07/2020 ABSEOSIN 0.22 03/30/2024 ABSEOSIN 0.08 10/07/2020 BASOP 0.6 03/30/2024 BASOP 0.8 10/07/2020 ABSBASO 0.09 03/30/2024 ABSBASO 0.06 10/07/2020 Lab Results Component Value Date PLT 320 03/30/2024 PLT 256 10/07/2020 HB 14.9 03/30/2024 HB 13.3 10/07/2020 HCT 47.7 03/30/2024 HCT 41.6 10/07/2020 ALB 4.8 03/30/2024 ALB 4.8 10/07/2020 CA 9.6 03/30/2024 CA 9.8 10/07/2020 TBILI 0.3 03/30/2024 TBILI <0.2 10/07/2020 ALKPHOS 106 03/30/2024 ALKPHOS 66 10/07/2020 AST 31 03/30/2024 AST 25 10/07/2020 GLUC 128 03/30/2024 GLUC 90 10/07/2020 BUN 8 03/30/2024 BUN 16 10/07/2020 NA 145 03/30/2024 NA 138 10/07/2020 K 3.2 03/30/2024 K 3.7 10/07/2020 CHLOR 105 03/30/2024 CHLOR 103 10/07/2020 CO2 10 03/30/2024 CO2 24 10/07/2020 ANION 30 03/30/2024 ANION 11 10/07/2020 ALT 36 03/30/2024 ALT 22 10/07/2020 WSR (mm/hr) Date Value 07/24/2020 8 CRP (mg/dL) Date Value 07/24/2020 0.4 No results found for: USCRP Cholesterol, Total (mg/dL) Date Value 02/15/2011 164 No results found for: LDL No results found for: HDL Triglyceride (mg/dL) Date Value 02/15/2011 61 No results found for: HBA1C RECENT MICROBIOLOGY: Blood Cultures: Pending Urine Cultures/UA: UA noninfectious DATA: Diagnostic tests reviewed for today's visit: Most recent labs and imaging results. 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 Neurological examination is essentially normal. However, patient noted to have tongue bite on lateral portion of tongue (R>L). Patient endorsing missing multiple doses of Keppra yesterday. Therefore, suspect breakthrough seizure in the s/o medication noncompliance +/- increased emotional stress d/t martial issues reported by patient. -BEM ordered -Follows outpatient with epilepsy, please consult -Continue home Keppra 1g BID -Consider MRI brain pending clinical course SIGNATURE: Alison Jolley MD PATIENT NAME: Julia Aranda DATE: March 30, 2024 TIME: 4:40 PM SENIOR RESIDENT ADDENDUM: Please see excellent note by Dr. Jolley above. Briefly, 53 yo F with PMH of significant for Meningioma s/p resection and GKRS, seizures (on LEV 1g BID prior to admission), who presents to [facility] NICU for multiple clinical seizures. She was found down at home 03/30/24 with seizures. EMS was called. On the way to OSH ED, pt had another clinical seizure aborted with 2.5mg IV midazolam. In the ED, pt was unresponsive and intubated for airway protection. She was loaded with LEV 4.5g. CTH was stable with no acute process. She was started on propofol and transferred to [facility] for further eval and EEG monitoring. Elevated WBC count likely in s/o seizures. UA and CXR unremarkable. Blood cultures in process. Antibiotics started briefly at OSH and then discontinued. K 3.2 and repleting, Na 145. Glucose 130. CTH showed redemonstration of known post-surgical changes and residual R clinoid meningioma unchanged from prior MRI. Prior MRI brain 05/08/2023: Remote right frontal craniotomy and debulking of meningioma with similar extensive gliosis and encephalomalacia within the anterior right frontal and temporal lobes. No substantial interval change in size or extent of residual right middle cranial fossa meningioma following surgical debulking. Upon arrival to [facility] NICU, she had been extubated and was alert and interactive with normal neurologic exam. She revealed she had missed both doses of her Keppra yesterday. Typically she is good with taking her meds, but misses them some days. She denies any sick symptoms or poor sleep. She has been having some stress related to her marriage and reports feeling down and depressed lately. No thoughts of hurting herself though and feels safe at home. Breakthrough seizures secondary to missed meds and emotional stress in the setting of known prior structural brain lesions (stable based on CTH today but last MRI in 04/2023). Plan: - continue LEV 1000mg BID - follows outpatient with epilepsy-- epilepsy consulted. - BEM ordered. Given she has returned to baseline and seizures were clinical in the setting of missed meds, no strong need for BEM, but will defer that decision to epilepsy team. - pending clinical course and if further seizures arise, could consider repeat MRI brain w/wo for surviellence (last MRI 04/2023) but given etiology is likely related to missed ASMs, no urgent need for MRI brain. - Utox/pain panel - consider psych consult Mercedes Nova MD Neurology PGY-4 March 30, 2024 4:55 PM Pager: [phone] Day Team Addendum: - Patient seen at bedside by the general neurology team. She reports return to baseline. She does note missed doses of keppra preceding her seizure, but otherwise notes prior control on the current keppra dosage without overt side effects. As she has returned to baseline without additional medical concerns ongoing per the NICU team, is stable for discharge from a neurology perspective. Suspect breakthrough seizure in the setting of medication nonadherence with possible contributing factor of stressors at home. Plan: - Continue Keppra 1g BID. - Follow-up with epilepsy, will notify Dr. Moya of her stay. - Seizure precautions. - Psychiatry recommended but patient deferred at this time due to concern of future financial constraints. Chriss Overton MD Neurology, PGY-3 [facility] STAFF: TEACHING PHYSICIAN NOTE OF PERSONAL INVOLVEMENT IN CARE INCLUDING MEDICAL DECISION MAKING I have reviewed the clinical details obtained and documented by Dr. Zamora and I have participated in the dewey components, including pertinent aspects of the history and physical examination. I have discussed the case and management of the patient's care with Dr. Zamora. I essentially agree with the assessment and plan as documented above. Edits to the note are indicated by italics. 53yo female with history as detailed above. Has known epilepsy and presents with multiple clinical seizures after missing several doses of LEV. Responded to LEV load, IV versed, and brief intubation/sedation. She is now extubated and at her neurological baseline. Assessment; Breakthrough seizure in setting of LEV non-compliance. Anticipate discharge today. This note was partially created using voice recognition software and is inherently subject to errors including those of syntax and sound-alike substitutions which may escape proofreading. In such instances, original meaning may be extrapolated by contextual derivation. Plan of care discussed with: Provider, RN, Patient, ICU team. Tor Mccauley, DO Staff, Neuromuscular Medicine [facility] ED NOTE Observed: 03/30/2024 3:06 PM Status: COMPLETED Source: [facility] HNO ID: [id number] Author: AVIS DORANTES RN Service: ? Author Type: Registered Nurse Type: ED Notes Filed: 03/30/2024 15:07 Note Text: Pt exiting ED at this time. ED NOTE Observed: 03/30/2024 3:03 PM Status: COMPLETED Source: [facility] HNO ID: [id number] Author: AVIS DORANTES RN Service: ? Author Type: Registered Nurse Type: ED Notes Filed: 03/30/2024 15:04 Note Text: Pt to CCT cot. Securing patient at this time. ED NOTE Observed: 03/30/2024 2:41 PM Status: COMPLETED Source: [facility] HNO ID: [id number] Author: AVIS DORANTES RN Service: ? Author Type: Registered Nurse Type: ED Notes Filed: 03/30/2024 14:41 Note Text: Critical care transport at bedside receiving report from this nurse and Dr. Crum. ED NOTE Observed: 03/30/2024 2:32 PM Status: COMPLETED Source: [facility] HNO ID: [id number] Author: AIVS DORANTES RN Service: ? Author Type: Registered Nurse Type: ED Notes Filed: 03/30/2024 14:32 Note Text: Pt continuing to have nonpurposeful movements, 4 mg versed ordered by Dr. Crum. ECG COMPLETE Observed: 03/30/2024 2:32 PM Status: F Source: [facility] Ventricular Rate : 67 BPM Atrial Rate : 67 BPM P-R Interval : 162 ms QRS Duration : 82 ms Q-T Interval : 388 ms QTC Calculation(Bazett) : 409 ms Calculated P [place] : 56 degrees Calculated R [place] : -26 degrees Calculated T [place] : 70 degrees NORMAL SINUS RHYTHM NONSPECIFIC ST ABNORMALITY ABNORMAL ECG WHEN COMPARED WITH ECG OF 17-Sep-2019 21:37, T WAVE AMPLITUDE HAS INCREASED IN ANTERIOR LEADS Confirmed by MD JOYCE VINAYAK ([id number]) on 04/01/2024 10:30:28 AM NAME : JULIA ARANDA PID : [id number] : 1970 Gender : Female Race : ORD : [id number] Procedure Date : Mar 30 2024 14:32:42 Edit Date : Apr 01 2024 10:30:30 Diagnosis: NORMAL SINUS RHYTHM NONSPECIFIC ST ABNORMALITY ABNORMAL ECG WHEN COMPARED WITH ECG OF 17-Sep-2019 21:37, T WAVE AMPLITUDE HAS INCREASED IN ANTERIOR LEADS Confirmed by MD JOYCE VINAYAK ([id number]) on 04/01/2024 10:30:28 AM Test Reason : Chest Pain Location : 191 : [facility]ARD ED Overread By : MD JOYCE VINAYAK Edited By : MD JOYCE VINAYAK Referred By : , Acquired by : EUGENE CONTRERAS ED NOTE Observed: 03/30/2024 2:28 PM Status: COMPLETED Source: [facility] HNO ID: [id number] Author: AVIS DORANTES RN Service: ? Author Type: Registered Nurse Type: ED Notes Filed: 03/30/2024 14:30 Note Text: After fentanyl dose, pt with relaxation of seizure-like movements. This lasted approx 45 seconds; pt began with movements and elevated heart rate immediately after. ED NOTE Observed: 03/30/2024 2:28 PM Status: COMPLETED Source: [facility] HNO ID: [id number] Author: AVIS DORANTES RN Service: ? Author Type: Registered Nurse Type: ED Notes Filed: 03/30/2024 14:35 Note Text: Nonviolent restraints placed to prevent kinking of arm and loss of propofol infusion. PROGRESS Observed: 03/30/2024 2:22 PM Status: COMPLETED Source: [facility] HNO ID: [id number] Author: ROSS CONLEY APRN.CNP Service: ? Author Type: Nurse Practitioner Type: Progress Notes Filed: 04/09/2024 09:30 Note Text: CRITICAL CARE TRANSPORT MEDICAL CONTROL CONSULT NOTE Patient Name: Julia Aranda Service Date: March 30, 2024 Referring Facility: [facility] Accepting Facility: [facility] MAIN REASON FOR TRANSPORT: Higher level of care REASON FOR CONSULT: Patient management during transport CCT MEDICAL CONTROL CONSULT SUMMARY: History, physical exam findings, and available background patient information from CCT Transport Nurse were reviewed at the time of consult. 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 Per notes she was found at home in the hallway, LKW 10am, family reported a grand mal seizure x 20 minutes. EMS noted the patient to be post ictal and able to answer simple yes/no questions. En-route to ED she had repeat seizure approx 2 min and versed 2.5 mg given. In the ED she is pot-ictal, unresponsive to painful and verbal stimuli, decision was made to intubate (etomidate/rocuronium). Post intubation she was started on propofol for sedation and given Keppra 4.[address] brain was done that showed no evidence of intracranial abnormality, similar appearance to previous MRI results. No reports of further clinical seizures in the ED. PLAN: Multiple factors considered including: patient history/condition/trajectory/stability, referring and receiving destinations, duration of transport time, medications and therapies available during transport, patient safety, as well as crew capabilities. At the time encounter with CCT ground crew pt remains intubated, sedated with propofol, no further evidence of seizure activity. Additional fentanyl and versed for sedation given to patient prior transport by the ED. Pt remained well sedated and stable for the duration of transport Assessment: Status epilepticus Acute hypoxic respiratory failure Orders given for: NA Plan of care and orders confirmed and read back via telephone with CCT Transport lance crewmember/mlrs sergeant, Shaila Burkett RN SIGNATURE: Ross Conley APRN.CLAUDIA Acute Care Nurse Practitioner Critical Care Transport ED NOTE Observed: 03/30/2024 2:18 PM Status: COMPLETED Source: [facility] HNO ID: [id number] Author: JESSENIA KERNS RN Service: Emergency Medicine Author Type: Registered Nurse Type: ED Notes Filed: 03/30/2024 14:18 Note Text: Pt accepted to [facility] G20 bed 7 Nurse to Nurse [phone] ED NOTE Observed: 03/30/2024 2:12 PM Status: COMPLETED Source: [facility] HNO ID: [id number] Author: AVIS DORANTES, YAZAN Service: ? Author Type: Registered Nurse Type: ED Notes Filed: 03/30/2024 14:12 Note Text: Episodes of twitching and tachycardia persists with short 30sec to 1 minute breaks between episodes. ED NOTE Observed: 03/30/2024 2:11 PM Status: COMPLETED Source: [facility] HNO ID: [id number] Author: AVIS DORANTES RN Service: ? Author Type: Registered Nurse Type: ED Notes Filed: 03/30/2024 14:11 Note Text: Family at bedside. Update given. ED NOTE Observed: 03/30/2024 2:03 PM Status: COMPLETED Source: [facility] HNO ID: [id number] Author: AVIS DORANTES RN Service: ? Author Type: Registered Nurse Type: ED Notes Filed: 03/30/2024 14:04 Note Text: Pt with visible twitching behaviors; heart rate increasing to 110-115 with each episode. Episodes lasting approx 2 minutes at each time. ED NOTE Observed: 03/30/2024 2:00 PM Status: COMPLETED Source: [facility] HNO ID: [id number] Author: AVIS DORANTES, YAZAN Service: ? Author Type: Registered Nurse Type: ED Notes Filed: 03/30/2024 14:45 Note Text: X-ray demonstrates need for further advancement of ET tube; ET tube advanced by Dr. Crum to 24# and the lip. BACTERIA BLD CULT Observed: 03/30/2024 1:54 PM Status: F Source: [facility] CULTURE, BLOOD: No growth 5 days Performed By: #### 600-7 ### # [facility] CLIA [id number] [address] [place] [address] [place] URINALYSIS COMPLETE PNL UR Collected: 03/30/2024 1:54 PM Status: F Source: [facility] Order Comment: Specimen Type : URINE SPECIMEN Ordering Facility: [facility] Address: [place] [id number] TYPE CODE TESTS RESULT OUT OF RANGE REFERENCE UNITS LAB 5778-6(LOINC) Color Ur Light Yellow Abnormal Yellow LAB 26997-7(LOINC) Clarity Spec Clear Clear LAB 5792-7(LOINC) Glucose Ur Strip-mCnc Trace Abnormal Negative LAB 5770-3(LOINC) Bilirub Ur Ql Strip Negative Negative LAB 2514-8(LOINC) Ketones Ur Strip Negative Negative LAB 5811-5(LOINC) Sp Gr Ur Strip 1.020 1.005-1.030 LAB 5794-3(LOINC) Hgb Ur Ql Strip 1+ Abnormal Negative LAB 5803-2(LOINC) pH Ur Strip 5.5 5.0-8.0 LAB 5804-0(LOINC) Prot Ur Strip-mCnc 1+ Abnormal Negative LAB 5818-0(LOINC) Urobilinogen Ur Strip 0.2 EU/dL 0.2-1.0 EU/dL LAB 5802-4(LOINC) Nitrite Ur Ql Strip Negative Negative LAB 5799-2(LOINC) Leukocyte esterase Ur Ql Strip Negative Negative LAB 5821-4(LOINC) WBC #/area UrnS HPF 0-5 /HPF 0-5 /HPF LAB 64792-7(LOINC) RBC #/area UrnS HPF 0-3 /HPF 0-3 /HPF LAB 5787-7(LOINC) Epi Cells #/area UrnS HPF Few /HPF Performed By: #### [id number] # ### [facility] CLIA [id number] [address] [place] [address] [place] FLUABV+SARS-COV-2+RSV PNL RE SP GARCIA+PROBE Observed: 03/30/2024 1:53 PM Status: F Source: [facility] SARS-COV-2 (AGENT OF COVID-1 9) RNA: Not detectedINFLUENZA A RNA: Not detectedINFLUENZA B RNA: Not detectedRESPIRATORY SYNCYTIAL VIRUS (RSV) RNA: Not detected Performed By: #### 05037-6 # ### [facility] CLIA [id number] [address] [place] [address] ED NOTE Observed: 03/30/2024 1:46 PM Status: COMPLETED Source: [facility] HNO ID: [id number] Author: AVIS DORANTES RN Service: ? Author Type: Registered Nurse Type: ED Notes Filed: 03/30/2024 13:46 Note Text: Vent settings changed per physician order: RR 20; FiO2 55% ALLIED HEALTH Observed: 03/30/2024 1:46 PM Status: COMPLETED Source: [facility] HNO ID: [id number] Author: DAISHA ARMENTA RT(Roderick) Service: Radiology Author Type: Technologist Type: Allied Health Filed: 03/30/2024 13:46 Note Text: Radiology Service Progress Note PATIENT NAME: Julia Aranda DATE OF SERVICE: March 30, 2024 TIME: 1:46 PM PATIENT IDENTITY VERIFICATION COMPLETED USING TWO (2) IDENTIFIERS: Name and Date of confirmed by identification band and Name and Date of obtained from a relative, guardian or prior caregiver.. FALL SCREENING: Has the patient had 2 falls in the last year or 1 fall with injury or currently using an Ambulatory Assistive Device (Walker, Cane, Wheelchair, Crutches, etc.)? Emergency Room Patient: Screened in ED PATIENT GENDER DATA: Assigned female at . status: : No status: NO. PATIENT RELEVANT IMPLANT DATA REVIEWED: Not Applicable PATIENT PRESENTS WITH AN IMPLANTABLE OR ATTACHED COMPENSATION AND BENEFITS ADVISOR: No RADIOLOGY DEPARTMENT: CT; Exam(s) Completed: Brain and General X-ray: Exam(s) Completed: Chest X-Ray PERIPHERAL IV DATA: Not applicable SIGNED BY: RT Judy(R) March 30, 2024 1:46 PM XR CHEST 1V FRONTAL Observed: 03/30/2024 1:45 PM Status: F Source: [facility] * * *Final Report* * * DATE OF EXAM: Mar 30 2024 1:45PM LDX 5290 - XR CHEST 1V FRONTAL / PROCEDURE REASON: Evaluate tube, line, or lead position * * * * Physician Interpretation * * * * EXAMINATION: CHEST RADIOGRAPH (SINGLE VIEW AP OR PA) CLINICAL HISTORY: Evaluate tube, line, or lead position MQ: XC1_5 Comparison: 09/06/2017 RESULT: Lines, tubes, and devices: Enteric tube is in the epigastric level slightly distal to expected location of GE junction. Mild gaseous distention of stomach. Endotracheal tube tip at the level aortic knob well above the ben. Lungs and pleura: Subsegmental parenchymal changes left lung base. Cardiomediastinal silhouette: Normal cardiomediastinal silhouette. Other: . IMPRESSION: Enteric tube is in the epigastric level slightly distal to expected location of GE junction. Mild gaseous distention of stomach. Endotracheal tube tip at the level aortic knob well above the ben.. Safety Council Director: [employer] Transcribe Date/Time: Mar 30 2024 2:00P Dictated by : SHAWN HERNANDEZ MD This examination was interpreted and the report reviewed and electronically signed by: SHAWN HERNANDEZ MD on Mar 30 2024 2:01PM EST [id number] CT BRAIN WO IVCON Observed: 03/30/2024 1:45 PM Status: F Source: [facility] * * *Final Report* * * DATE OF EXAM: Mar 30 2024 1:45PM [facility] 0504 - CT BRAIN WO IVCON / PROCEDURE REASON: Encephalitis * * * * Physician Interpretation * * * * EXAMINATION: CT BRAIN WO IVCON CLINICAL HISTORY: Seizures, history right clinoid meningioma status post surgery and gamma knife surgery. TECHNIQUE: Serial axial images without IV contrast were obtained from the vertex to the foramen magnum. MQ: CTBWO_3 CT Radiation dose: Integrated Dose-Length Product (DLP) for this visit = 707.24 mGy*cm CT Dose Reduction Employed: No dose reduction techniques were required COMPARISON: 05/08/2023 MRI brain RESULT: Localizer images: Post-operative change: Right frontal craniotomy. Acute change: No evidence of an acute infarct or other acute parenchymal process. Hemorrhage: No evidence of acute intracranial hemorrhage. ECASS hemorrhagic transformation score: Not Applicable Mass Lesion / Mass Effect: Asymmetry right side suprasellar cistern correlating with known residual right clinoid meningioma. No evidence of positive mass effect. Parenchyma: There is no significant volume loss. Redemonstration of decreased attenuation right frontal lobe, insula and anterior right temporal lobe consistent with encephalomalacia and gliosis as demonstrated on previous MRI unchanged. Ventricles: No evidence of obstructive hydrocephalus Paranasal sinuses and skull base: The visualized paranasal sinuses are grossly clear. The skull base and imaged soft tissues are unremarkable. IMPRESSION: 1. No CT evidence of acute intracranial abnormality 2. Status post right frontal craniotomy. Redemonstration of decreased attenuation right frontal lobe, insula and anterior right temporal lobe consistent with encephalomalacia and gliosis as demonstrated on previous MRI unchanged. 3.Asymmetry right side suprasellar cistern correlating with known residual right clinoid meningioma. Safety Council Director: [employer] Transcribe Date/Time: Mar 30 2024 1:51P Dictated by : SHAWN HERNANDEZ MD This examination was interpreted and the report reviewed and electronically signed by: SHAWN HERNANDEZ MD on Mar 30 2024 1:57PM EST [id number] ED NOTE Observed: 03/30/2024 1:28 PM Status: COMPLETED Source: [facility] HNO ID: [id number] Author: AVIS DORANTES RN Service: ? Author Type: Registered Nurse Type: ED Notes Filed: 03/30/2024 13:29 Note Text: Eugene, Respiratory / Alberto, radiology, YAZAN Goldman, and Roel, student nurse accompanying patient to CT at this time. Dr. Crum counseling with patients family in [facility]. ED NOTE Observed: 03/30/2024 1:27 PM Status: COMPLETED Source: [facility] HNO ID: [id number] Author: AVIS DORANTES RN Service: ? Author Type: Registered Nurse Type: ED Notes Filed: 03/30/2024 13:28 Note Text: Pts vent FiO2 increased to 50% due to O2 level 93% with good waveform. ED NOTE Observed: 03/30/2024 1:18 PM Status: COMPLETED Source: [facility] HNO ID: [id number] Author: AVIS DORANTES RN Service: ? Author Type: Registered Nurse Type: ED Notes Filed: 03/30/2024 13:18 Note Text: Vent: AC 12 400 tidal volume 40% FiO2 Peep: 5 CBC W AUTO DIFF BLD Collected: 03/30/2024 1:[address] atus: F Source: [facility] Order Comment: Specimen Type : BLOOD SPECIMEN Ordering Facility: [facility] Address: [place] [address] TYPE CODE TESTS RESULT OUT OF RANGE REFERENCE UNITS LAB 6690-2([facility]) WBC # Bld Auto 14.84 High 3.70-11.00 k/uL LAB 789-8([facility]) RBC # Bld Auto 5.00 3.90-5.20 m/ uL LAB 718-7([facility]) Hgb Bld-mCnc 14.9 11.5-15.5 g/dL LAB 4544-3([facility]) Hct VFr Bld Auto 47.7 High 36.0-46.0 % LAB 787-2([facility]) MCV RBC Auto 95.4 80.0-100.0 fL LAB 785-6([facility]) MCH RBC Qn Auto 29.8 26.0-34.0 p g LAB 786-4([facility]) MCHC RBC Auto-mCnc 31.2 30.5-36.0 g/dL LAB 84838-5([facility]) RDW RBC-Rto 12.1 11.5-15.0 % LAB 777-3([facility]) Platelet # Bld Auto 320 150-400 k/uL LAB 46663-8([facility]) PMV Bld Auto 9.8 9.0-12.7 fL LAB 770-8([facility]) Neutrophils/leuk NFr Bld Auto 61.8 % LAB 751-8([facility]) Neutrophils # Bl d Auto 9.17 High 1.45-7.50 k/uL LAB 736-9([facility]) Lymphocytes/leuk NFr Bld Auto 26.3 % LAB 731-0([facility]) Lymphocytes # Bl d Auto 3.91 1.00-4.00 k/uL LAB 5905-5([facility]) Monocytes/leuk NFr Bld Auto 7.5 % LAB 742-7([facility]) Monocytes # Bld Auto 1.11 High <0.87 k/uL LAB 713-8([facility]) Eosinophil/leuk NFr Bld Auto 1.5 % LAB 711-2([facility]) Eosinophil # Bld Auto 0.22 <0.46 k/uL LAB 706-2(LOINC) Basophils/leuk NFr Bld Auto 0.6 % LAB 704-7(LOINC) Basophils # Bld Auto 0.09 <0.11 k/uL LAB 30808-1(LOINC) Imm Granulocytes/leuk NFr Bld Auto 2.3 % LAB 50970-4(LOINC) Imm Granulocytes # Bld Auto 0.34 High <0.10 k/uL LAB 56567-3(LOINC) nRBC/100 WBC Bld-Rto LAB 771-6(LOINC) nRBC # Bld Auto LAB 26084-5([facility]) Differential method Bld Auto Performed By: #### 87178-6 # ### [facility] CLIA [id number] [address] HIGH SENSITIVITY TROPONIN T (INITIAL) Collected: 03/30/2024 1:18 PM Status: F Source: [facility] Order Comment: Specimen Type : BLOOD SPECIMEN Ordering Facility: [facility] Address: [address] [place] [address] TYPE CODE TESTS RESULT OUT OF RANGE REFERENCE UNITS LAB 95310-4([facility]) Troponin T SerPl HS-mCnc <6 <12 ng/L Performed By: #### [id number] # ### [facility] CLIA [id number] [address] [place] PNL BLDV Collected: 1:18 PM Status: F Source: [facility] Order Comment: Specimen Type : VENOUS BLOOD SPECIMEN Ordering Facility: [facility] Address: [address] [place] [address] TYPE CODE TESTS RESULT OUT OF RANGE REFERENCE UNITS LAB 2746-6(LOINC) pH BldV <7.00 Low Alert 7.32-7.42 LAB 2020-4(LOINC) pCO2 BldV 56 High 42-55 mmHg LAB 2705-2(LOINC) pO2 BldV 50 High 35-45 mmHg LAB 2711-0(LOINC) SaO2 % BldV 64 60-85 % LAB BDVEN BASE DEFICIT, VENOUS -19 Low -2-0 mmol/L LAB 00136-7(LOINC) HCO3 BldV-sCnc 13 Low 24-28 mmol/L LAB 2716-9(LOINC) OxyHgb MFr BldV 62 60-85 % LAB 2032-1(LOINC) COHgb MFr BldV 2.0 0.0-2.0 % Result Comment: Carboxyhemog lobin Reference Range for Smokers: 2.0-8.0% LAB 2614-6(LOINC) MetHgb MFr Bld <1.0 0.0-1.5 % LAB 2947-0(LOINC) Sodium Bld-sCnc 148 High 136-144 mmol/L LAB 6298-4(LOINC) Potassium Bld-sCnc 3.5 3.5-5.0 mmol/L LAB 66965-8(LOINC) Ca-I Bld-mCnc 1.20 1.08-1.30 m mol/L LAB 68665-3([facility]) Ca-I adj pH7.4 BldA-sCnc Result Comment: Measured pH is <7.20. Unable to report normalized Calcium. LAB 2339-0(LOINC) Glucose Bld-mCnc 99 60-105 mg/dL LAB 69663-9([facility]) Lactate Bld-sCnc 13.2 High 0.5-2.2 mmol/L LAB 718-7([facility]) Hgb Bld-mCnc 14.8 11.5-15.5 g/dL LAB 4544-3(LOINC) Hct VFr Bld Auto 45.3 36.0-46.0 % LAB VTMP TEMPERATURE, BODY 37.0 C Performed By: #### 54552-5 # ### [facility] CLIA [id number] [address] [place] [id number] [place] COMP METAB 2000 PNL SERPL Collected: 1:18 PM Status: F Source: [facility] Order Comment: Specimen Type : BLOOD SPECIMEN Ordering Facility: [facility] Address: [address] [place] [address] TYPE CODE TESTS RESULT OUT OF RANGE REFERENCE UNITS LAB 2885-2([facility]) Prot SerPl-mCnc 8.1 High 6.3-8.0 g/dL LAB 1751-7(LOINC) Albumin SerPl-mCnc 4.8 3.9-4.9 g/dL LAB 34422-8(LOINC) Calcium SerPl-mCnc 9.6 8.5-10.2 mg/dL LAB 1975-2(LOINC) Bilirub SerPl-mCnc 0.3 0.2-1.3 mg/dL LAB 6768-6(LOINC) ALP SerPl-cCnc 106 34-123 U/L LAB 26661-6(LOINC) AST SerPl w P-5'-P-cCnc 31 13-35 U/L LAB 1743-4(LOINC) ALT SerPl w P-5'-P-cCnc 36 7-38 U/L LAB 2345-7(INC) Glucose SerPl-mCnc 128 High 74-99 mg/dL Result Comment: The [place] Diabetes Association (ADA) provides guidance for cutoff values for fasting glucose and random glucose. The ADA defines fasting as no caloric intake for at least 8 hours. Fasting plasma glucose results between 100 to 125 mg/dL indicate increased risk for diabetes (prediabetes). Fasting plasma glucose results greater than or equal to 126 mg/dL meet the criteria for diagnosis of diabetes. In the absence of unequivocal hyperglycemia, results should be confirmed by repeat testing. In a patient with classic symptoms of hyperglycemia or hyperglycemic crisis, random plasma glucose results greater than or equal to 200 mg/dL meet the criteria for diagnosis of diabetes. Reference: Standards of Medical Care in Diabetes 2016, [place] Diabetes Association. Diabetes Care. 2016.39(Suppl 1). LAB 3094-0(LOINC) BUN SerPl-mCnc 8 7-21 mg/ dL LAB 2160-0(LOINC) Creat SerPl-mCnc 0.87 0.58-0.96 mg/dL LAB 2951-2(LOINC) Sodium SerPl-sCnc 145 High 136-144 mmol/L LAB 2823-3(LOINC) Potassium SerPl-sCnc 3.2 Low 3.7-5.1 mmol/L LAB 2075-0(LOINC) Chloride SerPl-sCnc 105 98-107 mmol/L LAB 8-9(LOINC) CO2 SerPl-sCnc 10 Low 22-30 mmo l/L LAB 91969-7(LOINC) Anion Gap SerPl-sCnc 30 High 8-15 mmol/L LAB 85154-1(LOINC) Creatinine + eGFR Pnl SerPlBld 80 >=60 mL/min/1. 73m??? Result Comment: Estimated Gl omerular Filtration Rate (eGFR) is calculated using the 2020 CKD-EPI creatinine equation. This equation utilizes serum creatinine, sex, and age as parameters. The creatinine assay has traceable calibration to isotope dilution-mass spectrometry. Refer to KDIGO guidelines for clinical interpretation. In patients with unstable renal function, e.g. those with acute kidney injury, the eGFR may not accurately reflect actual GFR. Performed By: #### 54012-6, 58982-7 #### [facility] CLIA [id number] [address] [id number] [facility] MAGNESIUM SERPL-MCNC Collected: 03/30/2024 1:18 PM S tatus: F Source: [facility] Order Comment: Specimen Type : BLOOD SPECIMEN Ordering Facility: [facility] Address: [address] [place] [address] TYPE CODE TESTS RESULT OUT OF RANGE REFERENCE UNITS LAB 33963-9([facility]) Magnesium SerPl-mCnc 2.3 1.7-2.3 mg/dL Performed By: #### 82626-0, 50101-4 #### [facility] CLIA [id number] [address] [place] [address] [facility] ED NOTE Observed: 03/30/2024 1:17 PM Status: COMPLETED Source: [facility] HNO ID: [id number] Author: AVIS DORANTES RN Service: ? Author Type: Registered Nurse Type: ED Notes Filed: 03/30/2024 13:17 Note Text: Propofol infusion began at 5mcg in left AC IV ED PROV NOTE Observed: 03/30/2024 1:11 PM Status: COMPLETED Source: [facility] HNO ID: [id number] Author: JUAN MIGUEL JOHNSON MD Service: Emergency Medicine Author Type: Physician Type: ED Provider Notes Filed: 03/30/2024 14:56 Note Text: ED Provider Note Patient Name: Julia Aranda : 1970 SERVICE DATE: 2/8/25 History Patient presents with: Seizures 53-year-old female with past medical history of meningioma status postresection and gamma knife who presents today with chief complaint of seizure. Per report the patient had a 15-minute seizure at home. EMS was called. On their arrival the seizure had stopped and the patient had returned to baseline. And route she had another seizure. Versed 2.5mg IV given. On arrival to the emergency department she is nonresponsive. Fingerstick glucose in the 100s per EMS. The patient is on Keppra, 1000 mg twice daily. The endorses that the patient is compliant. No recent illness that he is aware of. PAST MEDICAL HISTORY Diagnosis Date Anemia Brain tumor (HCC) Epilepsy (HCC) Meningioma (HCC) Mixed connective tissue disease (HCC) Pre-eclampsia PAST SURGICAL HISTORY Procedure Laterality Date BREAST AUGMENTATION W/PROSTHETIC IMPLANT ~1997 Saline implants-no complications. DELIVERY ONLY 2 C-sections ORBITOCRNL APPR MID CRANIAL FOSSA TEMPORAL LOBE 09/04/2017 RESCJ/EXC LES PARASELLAR SINUS CLIVUS/MSB IDRL 09/04/2017 STRTCTC CPTR ASSTD PX CRANIAL INTRADURAL 09/04/2017 FAMILY HISTORY Problem Relation Age of Onset None Mother None Father Cataract Maternal Grandmother Cataract Maternal Grandfather Glaucoma Paternal Grandmother Cataract Paternal Grandmother Cataract Paternal Grandfather Social History Tobacco Use Smoking status: Former Current packs/day: 0.00 Average packs/day: 0.3 packs/day for 20.0 years (5.0 ttl pk-yrs) Types: Cigarettes Start date: 09/03/1997 Quit date: 09/03/2017 Years since quittin.5 Smokeless tobacco: Never Vaping Use Vaping status: Never Used Substance and Sexual Activity Alcohol use: Not Currently Drug use: No Sexual activity: Yes Partners: Male ALLERGIES Allergen Reactions Bactrim [Sulfametho* Hives Sulfa (Sulfonamide * Unknown Review of Systems Unable to perform ROS: Acuity of condition Physical Exam Vitals [03/30/24 1301] BP Pulse Temp Temp src Resp SpO2 Weight Height 102/57 (!) 94 36.2 ?C (97.1 ?F) -- 23 99 % -- -- Physical Exam Vitals and nursing note reviewed. Constitutional: General: She is in acute distress. Appearance: She is ill-appearing and toxic-appearing. Comments: Nonresponsive HENT: Head: Normocephalic and atraumatic. Mouth/Throat: Mouth: Mucous membranes are moist. Eyes: General: Right eye: No discharge. Left eye: No discharge. Pupils: Pupils are equal, round, and reactive to light. Cardiovascular: Rate and Rhythm: Tachycardia present. Pulmonary: Effort: Pulmonary effort is normal. No respiratory distress. Breath sounds: Normal breath sounds. No wheezing or rhonchi. Abdominal: General: There is no distension. Palpations: Abdomen is soft. Tenderness: There is no abdominal tenderness. Musculoskeletal: Cervical back: No rigidity. Skin: General: Skin is warm. Findings: No rash. Neurological: Comments: No response to pain, GCS 3, spont resp, Pupils equal and reactive Diagnostic Testing ED Labs Ordered and Reviewed GLUCOSE, BLOOD (POC) - Abnormal; Notable for the following components: Result Value Ref Range Glucose, Point of Care 138 (*) 74 - 99 mg/dL All other components within normal limits INTUBATION Date/Time: 03/30/2024 2:31 PM Performed by: Juan Miguel Johnson MD Authorized by: Juan Miguel Johnson MD Informed Consent Consent Obtained: Emergent procedure [place] Protocol SIGN IN Personnel directly involved with the procedure wore the appropriate PPE. Special Equipment: N/A TIME OUT Pre-procedure details: Indications: airway protection and altered consciousness Patient status: Unresponsive Neck mobility: normal Pharmacologic strategy: RSI Pretreatment medications: None Induction agents: Etomidate Paralytics: Rocuronium Procedure details: Preoxygenation: Nonrebreather mask Number of attempts: 1 Successful intubation attempt details: Intubation method: Video assited Grade view: II Tube size (mm): 7.5 Tube type: Cuffed Tube visualized through cords: yes Placement assessment: ETT at teeth/gumline (cm): 22 Tube secured with: ETT mcclain Breath sounds: Equal Placement verification: chest rise, colorimetric ETCO2 and direct visualization Chest x-ray findings: ETT high, advanced 2cm. Post-procedure details: Procedure completion: Tolerated well, no immediate complications ED Course / Clinical Impression Clinical Impressions as of 03/30/24 1418 Status epilepticus (HCC) MDM / Disposition / Plan 53-year-old female with past medical history of meningioma who presents today with chief complaint of seizure. DDX includes but not limited to: The patient appears to be in status epilepticus, concern for intracranial process such as bleed or worsening malignancy as underlying etiology, also concern for metabolic or infectious etiology as source of the seizure ED course and medical decision making On presentation to the emergency department the patient is nonresponsive. She does not appear to be protecting her airway. The patient was intubated for airway protection emergently. Fingerstick glucose is within normal limits. Postintubation the patient continued to have what seemed to be seizure-like activity, propofol dosing will be increased secondary to this. She also will be started on status dosing of Keppra. VBG shows a pH of less than 7 with a lactate of 13, lactic acidosis. Likely secondary to seizure. She does have a leukocytosis. Clinically I feel it is unlikely the patient has meningitis based on history provided by the patient's but it is possible with the leukocytosis and the lactic acidosis as well as the seizure. Because of this we will go ahead and obtain blood cultures and start the patient on vancomycin and Rocephin. Chest x-ray shows OG in proper position. ET tube is somewhat high, will advance to centimeters. Did discuss this patient with Dr. Dennis at [facility] in the neuro ICU. The patient was accepted for admission. Post intubation pt was moving all 4 ext spontaneously History and Record Review Clinical information obtained from an independent historian. History obtained from or confirmed by: EMS personnel and spouse. External record(s) reviewed: prior inpatient record. Findings from review of inpatient records: meningioma s/p resection and gamma knife Management Management of the patient was discussed with:admitting team Discussion with admitting team included: NICU I performed an independent interpretation of the following:imaging Imaging: My interpretation is ET tube high, OG in appropriate position Critical Care I spent a total of 45 minutes of critical care time in the evaluation and management of this patient. This was necessary to treat or prevent deterioration of the following condition(s): [employer] impairment, which the patient had and/or has high probability of suddenly developing. The patient received IV fluids and consultation during the time that critical care was provided. Consulted with ICU. Critical care time excludes separately billed procedures. Critical care time documentation entered by Juan Miguel Johnson MD. SIGNATURE: Juan Miguel Johnson MD - EKG shows NSR, no ST elevation, non specific St changes new from prior JUAN MIGUEL JOHNSON 03/30/24 1429 JUAN MIGUEL JOHNSON 03/30/24 1433 JUAN MIGUEL JOHNSON 03/30/24 1437 JUAN MIGUEL JOHNSON 03/30/24 1456 ED NOTE Observed: 03/30/2024 1:10 PM Status: COMPLETED Source: [facility] HNO ID: [id number] Author: AVIS DORANTES RN Service: ? Author Type: Registered Nurse Type: ED Notes Filed: 03/30/2024 14:14 Note Text: OG placed; low intermittent suction to brown return. Alberto at bedside for verification. ED NOTE Observed: 03/30/2024 1:09 PM Status: COMPLETED Source: [facility] HNO ID: [id number] Author: AVIS DORANTES RN Service: ? Author Type: Registered Nurse Type: ED Notes Filed: 03/30/2024 13:09 Note Text: 50mcg fentanyl given via IV rt ac at this time. ED NOTE Observed: 03/30/2024 1:07 PM Status: COMPLETED Source: [facility] HNO ID: [id number] Author: AVIS DORANTES RN Service: ? Author Type: Registered Nurse Type: ED Notes Filed: 03/30/2024 13:08 Note Text: Pt being bagged at this time while ET tube secured. Dr. Crum orders 50mcg Fentanyl. Orders for propofol to follow fentanyl. ED NOTE Observed: 03/30/2024 1:04 PM Status: COMPLETED Source: [facility] HNO ID: [id number] Author: AVIS DORANTES RN Service: ? Author Type: Registered Nurse Type: ED Notes Filed: 03/30/2024 14:44 Note Text: Pt intubated without issue. ET 7.5 / # 22 at lip; positive color change ETCO2. Lung sounds bilaterally. brittany Dominguez in department for x-ray verification. ED NOTE Observed: 03/30/2024 1:02 PM Status: COMPLETED Source: [facility] HNO ID: [id number] Author: AVIS DORANTES RN Service: ? Author Type: Registered Nurse Type: ED Notes Filed: 03/30/2024 13:04 Note Text: 20 etomidate given at this time.; Followed by 75 rocuronium. Flushed. ED NOTE Observed: 03/30/2024 1:00 PM Status: COMPLETED Source: [facility] HNO ID: [id number] Author: AVIS DORANTES RN Service: ? Author Type: Registered Nurse Type: ED Notes Filed: 03/30/2024 13:00 Note Text: Orders: 20mg etomidate; 75mg Rocc. Respiratory at bedside. Pt placed on nonrebreather. ED NOTE Observed: 03/30/2024 12:55 PM Status: COMPLETED Source: [facility] HNO ID: [id number] Author: AVIS DORANTES RN Service: ? Author Type: Registered Nurse Type: ED Notes Filed: 03/30/2024 12:59 Note Text: Pt found seizing at home in hallway. Last known well 1000. Family reports as grand mal. Upon EMS arrival family reports seizure for approx 20 min. EMS reports patient awake, remains post-ictal answering questions as yes no; unclear as to time / season. In transport patient experienced another seizure lasting approx 2 minutes; 2. 5 versed given at approx 1249. Pt remains post ictal, nonresponsive to painful or verbal stimuli. Preparing to intibuate at this time. CNCRITCR Observed: 03/30/2024 12:00 AM Status: COMPLETED Source: [facility] Critical Care Transport (CCT ) MEENUJULIA A ([id number]) 1970 F Date Time Provider Department 03/30/24 ROSS CONLEY CCT During your visit today, we recorded the following information about you: Ross Conley, BRYAN.SPEAR FISHER 04/09/2024 9:30 AM Signed CRITICAL CARE TRANSPORT MEDICAL CONTROL CONSULT NOTE Patient Name: Julia Aranda Service Date: March 30, 2024 Referring Facility: [facility] Accepting Facility: [facility] MAIN REASON FOR TRANSPORT: Higher level of care REASON FOR CONSULT: Patient management during transport CCT MEDICAL CONTROL CONSULT SUMMARY: History, physical exam findings, and available background patient information from CCT Transport Nurse were reviewed at the time of consult. 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 Per notes she was found at home in the hallway, LKW 10am, family reported a grand mal seizure x 20 minutes. EMS noted the patient to be post ictal and able to answer simple yes/no questions. En-route to ED she had repeat seizure approx 2 min and versed 2.5 mg given. In the ED she is pot-ictal, unresponsive to painful and verbal stimuli, decision was made to intubate (etomidate/rocuronium). Post intubation she was started on propofol for sedation and given Keppra 4.[address] brain was done that showed no evidence of intracranial abnormality, similar appearance to previous MRI results. No reports of further clinical seizures in the ED. PLAN: Multiple factors considered including: patient history/condition/trajectory/stability, referring and receiving destinations, duration of transport time, medications and therapies available during transport, patient safety, as well as crew capabilities. At the time encounter with [facility] ground crew pt remains intubated, sedated with propofol, no further evidence of seizure activity. Additional fentanyl and versed for sedation given to patient prior transport by the ED. Pt remained well sedated and stable for the duration of transport Assessment: Status epilepticus Acute hypoxic respiratory failure Orders given for: NA Plan of care and orders confirmed and read back via telephone with [facility] Transport lance crewmember/mlrs sergeant, Shaila Burkett RN SIGNATURE: Ross Conley APRN.CLAUDIA Acute Care Nurse Practitioner Critical Care Transport Allergies As of Date: 03/30/2024 Noted Allergy Reaction BACTRIM (SULFAMETHOXAZOLE) 01/20/2010 4 - Hives SULFA (SULFONAMIDE ANTIBIOTICS) 01/20/2010 16 - Unknown Date Reviewed: 03/30/2024 Reviewed by: Tigist Diggs RN - Fully Assessed Reason for Visit: Critical Care Transport [1718] Prescriptions as of 04/09/2024 - levETIRAcetam (KEPPRA) 1,000 mg tablet Take 1 tablet by mouth two times a day. - meloxicam (MOBIC) 15 mg tablet Take 15 mg by mouth once daily. 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 Author Type: Physician Outside Salesman Type: Progress Notes Filed: 12/26/2023 07:50 Note Text: [facility] VIRTUAL VISIT This is a virtual visit using [employer] video visit. It required patient-provider interaction for the medical decision making as documented below. I have communicated my name and active licensure. The patient's identity and physical location were verified at the time of this visit. Either the patient or their legal inbound sales representative has been informed of the risks and benefits of -- and alternatives to -- treatment through a remote evaluation and consents to proceed with the evaluation remotely. CHIEF COMPLAINT: Patient presents with: Follow Up Seizures Refill Request HISTORY OF PRESENT ILLNESS: Julia Aranda is a 53 year old female who is diagnosed with well controlled seizures after right clinoid meningioma resection(09/04/2017) and (GK 04/2019). They are an established patient of Dr. Barbara Calles and was last seen on October 19, 2022. Interval History: Seizure medication: Keppra 1000mg BID Side effects: none Seizures: There have been no seizures - her last seizure was in 08/2017. Other health: She continues to follow up with MRI brain and the BT department. 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 - Images reviewed with her - Recommend follow-up appointment with me and new MRI in 2 years. She notes she is in menopause. This has affected her sleep - she wakes up with hot flashes, but is able to fall back asleep easily. 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 meloxicam (MOBIC) 15 mg tablet Take 15 mg by mouth once daily. As needed No current facility-administered medications for this visit. PAST MEDICAL HISTORY Diagnosis Date Anemia Brain tumor (HCC) Epilepsy (HCC) Meningioma (HCC) Mixed connective tissue disease (HCC) Pre-eclampsia PAST SURGICAL HISTORY Procedure Laterality Date BREAST AUGMENTATION W/PROSTHETIC IMPLANT ~1997 Saline implants-no complications. DELIVERY ONLY 2 C-sections ORBITOCRNL APPR MID CRANIAL FOSSA TEMPORAL LOBE 09/04/2017 RESCJ/EXC LES PARASELLAR SINUS CLIVUS/MSB IDRL 09/04/2017 STRTCTC CPTR ASSTD PX CRANIAL INTRADURAL 09/04/2017 FAMILY HISTORY Problem Relation Age of Onset None Mother None Father Cataract Maternal Grandmother Cataract Maternal Grandfather Glaucoma Paternal Grandmother Cataract Paternal Grandmother Cataract Paternal Grandfather ASSESSMENT: Julia Aranda is a 53 year old female with history of seizures in the setting of clinoid meningioma. It is currently stable - following with the BT department. She continues Levetiracetam monotherapy, with no seizures since August 2017 and no side effects to medication. PLAN: - LABS: none - Medications: Keppra 1000mg BID. (Changed to 1000 mg tabs for easier administration) Rx escripted. - Consults: continue to follow up with MRI and BT department- recently follow ups changed to Q2 years, or sooner if indicated - Discuss hot flash management with [facility] (risk of seizures with sleep deprivation) - Follow up: 12 months with epilepsy department I spent a total of 18 minutes on the date of the service which included preparing to see the patient, [id number] patient care, completing clinical documentation, and ordering medications, tests, or procedures. Tara Natarajan PA-C December 25, 2023 ALLERGIES DATE TYPE / CODE NAME / CODE REACTION SEVERITY SOURCE 01/20/2010 DRUG INGREDI/30815 1003(SNOMED CT) SULFAMETHOXAZOLE HIVES [facility] 01/20/2010 Drug Class/[id number] 03(SNOMED CT) SULFA (SULFONAMIDE ANTIBIOTICS) UNKNOWN [facility] ENCOUNTERS ADMIT/DISCHARGE ACCOUNT NUMBER ADMITTING ENCOUNTER CLASS LOCATION SOURCE 05/06/2024/05/07/19 [id number] Ambulatory [facility]:WOL2 [facility] 05/01/2024/05/02/19 25 [id number] Ambulatory [facility] HospitalBuild ing:[id number] [facility] 03/30/2024/03/31/19 25 [id number] DADA ALCOCER Inpatient Encounter [facility] HospitalBuild ing:[id number]: [id number]: [id number] [facility] 03/30/2024/03/30/19 25 [id number] Emergency [place] [facility]:LDEDRoom: EDBed: 01 [facility] 12/25/2023/12/25/19 24 [id number] Ambulatory [facility] HospitalBuild ing:NE50 [facility] PAYERS ENCOUNTER GUARANTOR PAYER SUBSCRIBER SOURCE 05/06/2024 Primary Insuranc e:MMO SUPER[employer] PPOPolicy Number: [id number] Date:9513-30-59Ttjq Name:Nadir RODRIGUEZ: [id number] [place] [address] [facility] 05/01/2024 Primary Insuranc e:MMO SUPERMED PPOPolicy Number: [id number] Date:3619-12-48Yxoa Name:Nadir RODRIGUEZ: [id number] [place] [address] [facility] 03/30/2024 Primary Insuranc e:MMO SUPERMED PPOPolicy Number: [id number] Date:5270-76-14Uszj Name:Nadir RODRIGUEZ: [id number] [place] [address] [facility] 03/30/2024 Primary Insuranc e:MMO SUPERMED PPOPolicy Number: [id number] Date:6487-11-17Eyze Name:Nadir RODRIGUEZ: [id number] [place] [address] [facility] 12/25/2023 Primary Insuranc e:MMO SUPERMED PPOPolicy Number: [id number] Date:1745-99-77Pdpw Name:Nadir RODRIGUEZ: [id number] [place] [address] [facility]
[2024-11-18 15:24] LABS: Hematocrit 38.4 % (37-47); Hemoglobin 13.0 g/dL (12.0-15.0); Immature Granulocytes Count 0.000 X10^3/uL (0.0-0.0); Mean Corp Hgb Conc 33.9 g/dL (32-36); Mean Corpuscular Volume 89.3 fL (81-99); Mean Platelet Vol. 10.4 fl (6.2-12.0); NRBC Flagged by Analyzer 0 % (0-5); Platelet Count 227 K/mm3 (150-450); RBC Distribution Width CV 12.7 % (11.6-14.6); RBC Distribution Width SD 41.7 fl (35.1-43.9); Red Blood Count 4.30 M/mm3 (4.2-5.4); White Blood Count 5.4 K/mm3 (4.4-11.0)
[2024-11-18 16:20] LABS: AST(SGOT) 28 U/L (<=31); Alanine Aminotransfer ALT/SGPT 33 U/L (<=34); Albumin, Serum 4.5 g/dL (3.5-5.0); Alkaline Phosphatase 83 U/L (35-104); Anion Gap 14 (5-15); BUN 15 mg/dL (4-19); BUN/Creat Ratio 20.4 RATIO (10-20); Calcium,Total 9.5 mg/dL (7.6-11.0); Carbon Dioxide 22.2 mmol/L (21.0-32.0); Chloride 106 mmol/L (98-108); Globulin 2.7 g/dL (2.2-4.2); Glucose 86 mg/dL (70-99); Potassium 4.2 mmol/L (3.3-5.1)
== END | disposition home or self-care (01) ==
LOC: MTLAB 11:42
PROVIDERS: PCP Family Medicine; Referring Provider Internal Medicine Rheumatology; Visit Provider Internal Medicine Rheumatology
DX: M06.4 Inflammatory polyarthropathy (principal); M35.81 Multisystem inflammatory syndrome; M65.311 Trigger thumb, right thumb; Z79.899 Other long term (current) drug therapy
CPT/HCPCS: 36415; 80053; 85025